=== PATIENT | female | born 1980 | race Caucasian/White ===

== ENCOUNTER 2021-12-20 23:49 | Inpatient (IN) | payer OTHER, SELFPAY ==
[2021-12-20 23:54] VITALS: BP 126/82; PULSE 69; RESP 16; TEMP 35.7; O2SAT 98
[2021-12-21] VITALS (18 sets, daily range): BP systolic 102–116; BP diastolic 51–73; PULSE 63–75; RESP 14–16; TEMP 36.4–36.7; O2SAT 91–98; BMI 35.5
--- NOTE | 2021-12-21 00:54 | CRLHL7_ITS ---
For Patients: As a result of the 21st Century Cures Act, medical imaging exams and procedure reports are released immediately into your electronic medical record. You may view this report before your referring provider. If you have questions, please contact your health care provider. INDICATION: Umbilical pain. COMPARISON: None available. TECHNIQUE: CT examination of the abdomen and pelvis was performed with the uneventful intravenous administration of 100 cc of Isovue 370 while 3 mm thick axial sections were obtained from the lung bases through the pubic symphysis. Oral contrast was not administered. Please note that all CT scans at this facility use dose modulation, iterative reconstruction, and/or weight-based dosing when appropriate to reduce radiation dose to as low as reasonably achievable. FINDINGS: There is moderate dilatation of the mid and distal small bowel extending to edematous loops in the right inferior pelvis where there is a mild amount of surrounding free fluid. A point of transition is seen in the right pelvis on axial image 124 series 2, suggesting a stricture. Findings are that of a stricture resulting in partial small bowel obstruction. The small bowel distal to the point of transition is collapsed. There is a mild amount of free fluid in the right pelvis, inferior to the liver. The free fluid in the abdomen and pelvis is probably ascites related to obstruction, with no sign of free air or extraluminal air to suggest bowel perforation. In the abdomen, the liver, spleen, pancreas, and adrenals are normal in appearance. Several small cortical cysts are seen in both kidneys. The kidneys are otherwise normal in appearance. The gallbladder is normal in appearance. The abdominal aorta is normal in caliber with no sign of dilatation. There is no sign of retroperitoneal mass or adenopathy. The stomach, loops of small bowel, and colon in the abdomen are normal in appearance. In the pelvis, the appendix is normal in appearance with no sign of inflammatory process. The loops of small bowel, colon, and rectum in the pelvis are normal in appearance. The right ovary has a cyst measuring 4.0 x 3.1 centimeters. There is a right adnexal cyst measuring 1.9 centimeters in diameter more inferiorly. The left ovary has a collapsing 1.7 centimeter cyst. The uterus is normal in appearance. The urinary bladder is normal in appearance. There is no sign of pelvic or inguinal mass or adenopathy. There is no sign of free air in the abdomen or pelvis. The lung bases are clear. The inferior portions of bilateral breast prostheses are intact with no sign of any leak. There is severe L5-S1 disc degenerative disease. IMPRESSION: Partial small bowel obstruction produced by what appears to be a stricture in the right anterior upper pelvis. Mild amount of free fluid in the abdomen and pelvis probably ascites related to struck jacobs. No sign of free air or extraluminal air to suggest perforation. CT of the abdomen shows no additional significant abnormality. CT of the pelvis shows a right larger than left ovarian cysts and a right adnexal cyst. Please note that all CT scans at this facility use dose modulation, iterative reconstruction, and/or weight-based dosing when appropriate to reduce radiation dose to as low as reasonably achievable. Dictated by Erick Peace MD @ 12/21/2021 2:13:59 AM (Electronically Signed)
[2021-12-21 01:02] LABS: Basophils Absolute Auto 0.02 K/uL (0.00-0.30); Basophils Percent Auto 0.2 % (0.0-3.0); Eosinophils Percent Auto 2.2 % (0.0-7.0); Hematocrit 41.2 % (33.0-51.0); Hemoglobin* 14.3 gm/dL (12.0-16.0); Immature Granulocytes Abs Auto 0.01 K/uL (0.00-0.30); Lymphocytes Percent Auto 15.7 % (20-44); Mean Corpuscular HGB Conc 35 gm/dL (32-36); Mean Corpuscular Hemoglobin 33 pg (26-34); Mean Corpuscular Volume 96 fL (80-100); Monocytes Percent Auto 8.1 % (0.0-11.0); Neutrophils Percent Auto 73.7 % (42.0-72.0); Platelet Count* 276 K/uL (140-440); RDW Coefficient of Variation % 11.9 % (11.5-15.5); Red Blood Count 4.31 m/uL (4.00-5.20)
[2021-12-21 01:07] LABS: Albumin* 4.7 g/dL (3.3-5.0); Chloride* 102 mmol/L (96-114); Lactate* 0.8 mmol/L (0.5-1.9); Potassium* 3.9 mmol/L (3.6-5.1); Slide Review Reflex No; Sodium* 136 mmol/L (135-149)
[2021-12-21] MEDS: ONDANSETRON 2 MG/ML inj 4 MG IVP (01:07)
[2021-12-21] MEDS: MORPHINE 4 MG/ML INJ IVP ×2 (01:08→03:28)
[2021-12-21] MEDS: 0.9 % SODIUM CHLORIDE 1000 ml 1,000 ML IV (01:08)
[2021-12-21 01:09] LABS: Creatinine* 0.8 mg/dL (0.5-1.5); Estimated Glomerular Filt Rate 94 ml/min
[2021-12-21 01:10] LABS: Alanine Aminotransferase* 30 U/L (4-35); Alkaline Phosphatase* 72 U/L (40-150); Aspartate Amino Transferase* 39 U/L (12-35); Bilirubin Direct* 0.1 mg/dL (0.0-0.5); Bilirubin Total* 0.7 mg/dL (0.1-1.5); Blood Urea Nitrogen* 14 mg/dL (5-24); Calcium* 10.2 mg/dL (8.4-10.6); Carbon Dioxide* 27 mmol/L (20-32); Glucose* 110 mg/dL (60-115); Lipase* 47 U/L (23-300); Total Protein* 7.3 g/dL (6.0-8.3)
[2021-12-21 01:15] LABS: Appearance Urine Cloudy (Clear); Bilirubin Urine Negative (Negative); Blood Urine Negative (Negative); Color Urine Yellow (Yellow); Glucose Urine Negative (Negative); Ketones Urine 1+ (Negative); Leukocyte Esterase Urine Negative (Negative); Nitrite Urine Negative (Negative); Protein Urine Negative (Negative); Specific Gravity Urine 1.015 (1.000-1.030); Urobilinogen Urine 0.2 (0.2-1.0)
[2021-12-21 01:19] LABS: Ethanol* < 0.01 % (0.01-0.03)
[2021-12-21 01:21] LABS: Amorphous Sediment Urine Many; Bacteria Urine Few; RBC Urine 0-2 (0-2); Squamous Epithelial Cell Urine Few (None-Few); Ur HCG Qualitative* Negative (Negative); WBC Urine 0-2 (0-5)
[2021-12-21 01:29] LABS: C Reactive Protein* < 0.5 mg/dL (0.5-1.0)
--- OUTSIDE RECORDS SUMMARY | 2021-12-21 01:41 | XMS_ITS | Clinical Summary ---
:1980 Author Organization [facility] [place] [address] Care Team Providers Name Role Phone Pcp, No Primary Care Provider Unavailable Allergies No known active allergies Medications Medication Sig Dispensed Refills Start Date End Date Status vitamin-folic Take 1 tablet by 0 03/12/2012 Active acid 1 mg ( mouth once daily. VITAMIN) tablet/capsule valACYclovir (VALTREX) Take 1 tablet by 60 Tab 2 03/18/2013 Active 500 mg tablet mouth 2 times daily. venlafaxine (EFFEXOR Take 75 mg by 0 08/04/2021 Active XR) 75 mg cp24 mouth once daily Extended-Release in the afternoon. capsule prazosin (MINIPRESS) 1 Take 1 mg by 0 07/13/2021 Active mg capsule mouth at bedtime. Active Problems Problem Noted Date Labor and delivery, indication for care 09/20/2012 Supervision of normal first 07/02/2012 Genital herpes, unspecified 03/12/2012 Depression with anxiety 06/14/2011 Routine health maintenance 06/14/2011 Overview: Pap smear 02/2011 Irritable bowel syndrome 06/18/2006 ALLERGIC RHINITIS D/T ANIMAL HAIR AND DANDER, cats, po llen, mold 06/18/2006 Resolved Problems Problem Noted Date Resolved Date Adjustment disorder with mixed anxiety and depressed mood 06/14/2011 Encounters Date Type Specialty Care Team Description 11/15/2021 Office Visit [facility]real [facility] (In the last 6 mo she complains o f gaining wt- with increa sed activity. Fatig ue, and hot/cold. - sta patricia that she had COVID-19 th e end of May, and noti erika the sx started after t hat. States that she just doesn't feel right ) 11/15/2021 Travel from Last 3 Months Immunizations Name Administration Dates Next Due AMB Influenza, IIV3 (Age >=3 years)(Flu 01/06/2013 Clinic Only) Influenza, IIV3 (Age >=3 years) 03/12/2012 Influenza, IIV4 01/05/2021, 11/05/2014, 01/05/2014 Td (Age >=7 Years) 11/03/2005 Tdap 08/20/2014, 07/02/2012 Family History Medical History Relation Name Comments [facility] Brother 1 Bean Good Health Brother 2 Esau Good Health Brother 3 August Hypertension Father RA Cancer Maternal Grandfather thyroid Hypertension Mother high chol Cancer Paternal Grandfather colon, Park inson's Relation Name Status Comments Brother 1 Bean Brother 2 Esau Brother 3 August Father Alive Maternal Grandfather Mother Alive Paternal Grandfather Social History Tobacco Use Types Packs/Day Years Used Date Former Smoker 1 8 Quit: 06/19/19 06 Smokeless Tobacco: Never Used Alcohol Use Standard Drinks/Week Comments Yes 3.3 (1 standard drink = 0.6 oz pure [place]co hol) occ. Sex Assigned at Date Recorded Not on file Obstetrics History Para Term AB IAB SAB Ectopic Multiple Living Live Births 1 Date Outcome GA Total Labor/2nd/3rd Weight Sex Delivery Anes PTL Lurdes A 1 A5 Name Clin Labor Last Filed Vital Signs Vital Sign Reading Time Taken Comments Blood Pressure 110/68 08/28/2016 2:04 PM CDT Pulse 79 11/15/2021 10:50 AM CDT Temperature 36 ??C (96.8 ??F) 08/28/2016 1:30 PM CDT Respiratory Rate 18 08/28/2016 2:04 PM CDT Oxygen Saturation 100% 08/28/2016 2:04 PM CDT Inhaled Oxygen Concentration - - Weight 109.8 kg (242 lb) 11/15/2021 10:50 AM CDT Height 174 cm (5' 8.5) 11/15/2021 10:50 AM CDT Body Mass Index 36.26 11/15/2021 10:50 AM CDT Plan of Treatment Health Maintenance Due Date Last Done Comments Hepatitis C screening for age 0406/24/1997 18-79 COVID-19 vaccine series (4 - 03/02/2021 01/05/2021, 021, Booster for Pfizer series) 06/03/2020 Influenza for age 9-49 11/03/2021 01/05/2021, 11/05/2014, 01/05/2014, Additional history exists Pap test for age 21-65 01/29/2022 01/29/2019, 01/29/2019, 02/24/2011, Additional history exists BMI (ht and wt on same day) for 11/15/2022 11/15/2021, 08/04, age 18+ 01/18/2016 Depression screening for age 12+ 11/15/2022 11/15/2021 Tetanus booster 08/20/2024 08/20/2014, 07/02/2012, 11/03/2005 Tdap Completed 08/20/2014, 07/02/2012 Procedures Procedure Name Priority Date/Time Associated Diagnosis Comme nts VITAMIN D 25 Routine 11/15/2021 11:39 Fatigue, unspecified Res ults for this (DEFICIENCY) AM CDT type procedure are i n the results section. LIPID PANEL W REFLEX Routine 11/15/2021 11:39 Fatigue, unspeci fied Results for this MEASURED LDL AM CDT type procedure are i n the results section. COMP METABOLIC PANEL Routine 11/15/2021 11:39 Fatigue, unspeci fied Results for this AM CDT type procedure are i n the results section. HEMOGLOBIN A1C Routine 11/15/2021 11:39 Fatigue, unspecified R esults for this SCREENING AM CDT type procedure are i n the results section. CBC W PLT NO DIFF Routine 11/15/2021 11:39 Fatigue, unspecifie d Results for this AM CDT type procedure are i n the results section. TSH WITH REFLEX Routine 11/15/2021 11:39 Fatigue, unspecified Results for this AM CDT type procedure are i n the results section. from Last 3 Months Results HEMOGLOBIN A1C SCREENING (11/15/2021 11:39 AM CDT) P athologist Signature HEMOGLOBIN A1C 5.2 <=6.4 % 11/16/2021 [facility] SCREENING 11:31 AM CDT LABORATORY-[facility] LABORATORY Specimen Anatomical Collection Method / Collection Time Recei mirna Time (Source) Location / Volume Laterality Blood BLOOD SPECIMEN / Venipuncture / 11/15/2021 11:39 11/15 Unknown Unknown AM CDT 11:39 AM CDT Narrative [facility] 11/16/2021 11:31 AM CDT ? (<5.7%) ?Normal ? (5.7% to 6.4%) ? Indicates pr ediabetes ? (>=6.5%) ? Confirms diabetes Falsely low levels may be seen with: Recent Transfusion, Recent Significant B lood Loss, Hemolytic Diseases, or Falsely elevated levels may be seen with : Untreated Anemias, Splenectomy Isreal Ibarra MD CHEMISTRY Performing Organization Address City/[facility] Phon e Number [phone] [place] [address] LABORATORY-CENTRAL 2000 LABORATORY TSH WITH REFLEX (11/15/2021 11:39 AM CDT) P athologist Signature TSH 1.01 0.35 - 4.94 11/16/2021 [facility] uIU/mL 8:15 AM CDT LABORATORY-CENTR AL LABORATORY Specimen Anatomical Collection Method / Collection Time Recei mirna Time (Source) Location / Volume Laterality Blood BLOOD SPECIMEN / Venipuncture / 11/15/2021 11:39 11/15 Unknown Unknown AM CDT 11:39 AM CDT Narrative [facility] 11/16/2021 8:15 AM CDT In Adults, TSH values between 5.00 and 10.00 uIU/ml do not necessarily indicate the presence of Hyp othyroidism. Correlation with clinical findings such as presence of goiter and/or Thyroperoxidase (TPO) Antibody ma y be helpful. For more information please refer to [facility] 20 ; 291: [phone]. Isreal Ibarra MD CHEMISTRY Performing Organization Address City/[facility] Phon e Number [phone] [place] [address] LABORATORY-CENTRAL 2000 LABORATORY (ABNORMAL) LIPID PANEL W REFLEX MEASURED LDL (11/15/2021 11:39 AM CDT) [facility] gist Method Time Signature CHOLESTEROL,TOTAL 266 (H) 100 - 199 11/16/2021 [facility] mg/dL 7:56 AM CDT LABORATORY-[facility] TRAL LABORATORY TRIGLYCERIDES 65 <150 11/16/2021 [facility] mg/dL 7:56 AM CDT LABORAT[facility] LABORATORY HDL CHOLESTEROL 83 >40 mg/dL 11/16/2021 [facility] 7:56 AM CDT [facility] LAB[facility]ORY NON-HDL 183 (H) <145 11/16/2021 [facility] CHOLESTEROL mg/dl 7:56 AM CDT LABORAT[facility] TR[facility] LABORATORY CHOL/HDL RATIO 3.20 <4.50 11/16/2021 [facility] [employer] 7:56 AM CDT LABORATORY-[facility] TRAL LABORATORY LDL CHOLESTEROL 170 (H) <=130 11/16/2021 [facility] mg/dL 7:56 AM CDT LABORATORY-[facility] TR[facility] LABORATORY VLDL CHOLESTEROL 13 <=30 11/[facility]20[facility] mg/[facility] 7:56 AM CDT LABORAT[facility] TRAL LABORATORY PROVIDER ORDERED RANDOM 11/16/2021 [facility] STATUS 7:56 AM CDT LABORATORY-[facility] TRAL LABORATORY Specimen Anatomical Collection Method / Collection Time Recei mirna Time (Source) Location / Volume Laterality Blood BLOOD SPECIMEN / Venipuncture / 11/15/2021 11:39 11/15 Unknown Unknown AM CDT 11:39 AM CDT Isreal Ibarra MD CHEMISTRY Performing Organization Address City/State/ZIP Code Phon e Number [facility] [address] [place] [address] LABORATORY-CENTRAL 2000 LABORATORY VITAMIN D 25 (DEFICIENCY) (11/15/2021 11:39 AM CDT) athologist Signature VITAMIN D 50.6 30.0 - 11/16/2021 [facility] [employer] TOTAL 80.0 ng/mL 6:44 AM CDT LABORATORY-CENT RAL LABORATORY Specimen Anatomical Collection Method / Collection Time Recei mirna Time (Source) Location / Volume Laterality Blood BLOOD SPECIMEN / Venipuncture / 11/15/2021 11:39 11/15 Unknown Unknown AM CDT 11:39 AM CDT [facility] LABORATORY-CENTRAL LABORAT ORY - 11/16/2021 6:44 AM CDT Deficiency: ? <20 ng/mL Insufficiency: ?20-29 ng/mL Sufficiency: ?30-80 ng/mL Possible Toxicity: ??>80 ng/mL Based on [place] [facility] recommend ations Isreal Ibarra MD SEND OUTS Performing Organization Address City/State/ZIP Code Phon e Number [facility] [address] [place] [address] LABORATORY-CENTRAL 1999 LABORATORY (ABNORMAL) CBC W PLT NO DIFF (11/15/2021 11:39 AM CDT) Analysis Performed At Patho logist Time Signature WHITE BLOOD 5.1 4.5 - 11.0 11/15/2021 [facility] COUNT thou/cu mm 11:42 AM T [facility] RED BLOOD COUNT 3.94 (L) 4.00 - 11/15/2021 [facility] 5.20 11:42 AM T [place] mil/cu mm CLINIC HEMOGLOBIN 13.0 12.0 - 11/15/2021 [facility] 16.0 g/dL 11:42 AM [facility] HEMATOCRIT 38.7 33.0 - 11/15/2021 [facility] 51.0 % 11:42 AM [facility] MCV 98 80 - 100 11/15/2021 [facility] fL 11:42 AM T [facility] MCH 33.0 26.0 - 11/15/2021 [facility] 34.0 pg 11:42 AM [facility] MCHC 33.6 32.0 - 11/15/2021 [facility] 36.0 g/dL 11:42 AM T [facility] RDW 12.1 11.5 - 11/15/2021 [facility] 15.5 % 11:42 AM T [facility] PLATELET COUNT 245 140 - 440 11/15/2021 [facility] thou/cu mm 11:42 AM T [facility] MPV 9.2 6.5 - 11.0 11/15/2021 [facility] 11:42 AM CDT [facility] Specimen Anatomical Collection Method / Collection Time Recei mirna Time (Source) Location / Volume Laterality Blood BLOOD SPECIMEN / Venipuncture / 11/15/2021 11:39 11/15 Unknown Unknown AM CDT 11:39 AM CDT Isreal Ibarra MD HEMATOLOGY Performing Organization Address City/State/ZIP Code Phon e Number [facility] [id number] [place], [place] [address] [facility] [address] [place] [address] COMP METABOLIC PANEL (11/15/2021 11:39 AM CDT) P athologist Signature SODIUM 141 135 - 145 11/16/2021 [facility] mmol/L 7:56 AM CDT LABORATORY-[facility] TR[facility] LABORATORY POTASSIUM 4.4 3.5 - 5.0 11/16/2021 [facility] mmol/L 7:56 AM CDT LABORATORY-[facility] TRAL LABORATORY CHLORIDE 106 98 - 110 11/16/2021 [facility] mmol/L 7:56 AM CDT LABORAT[facility] TR[facility] LABORAT[facility] CO2,TOTAL 26 21 - 31 11/16/2021 [facility] mmol/L 7:56 AM CDT LAB[facility]AT[facility] ANION GAP 9 5 - 18 11/16/2021 [facility] 7:56 AM CDT LAB[facility]AT[facility] GLUCOSE 92 65 - 100 11/16/2021 [facility] mg/dL 7:56 AM CDT LAB[facility]AT[facility] CALCIUM 8.9 8.5 - 10.5 11/16/2021 [facility] mg/dL 7:56 AM CDT [facility] BUN 10 8 - 25 11/16/2021 [facility] mg/dL 7:56 AM CDT [facility] CREATININE 0.82 0.57 - 11/16/2021 [facility] 1.11 mg/dL 7:56 AM CDT [facility] BUN/CREAT RATIO 12 10 - 20 11/16/2021 [facility] 7:56 AM CDT [facility] ALBUMIN 4.3 3.5 - 5.2 11/16/2021 [facility] g/dL 7:56 AM CDT [facility] PROTEIN,TOTAL 6.6 6.0 - 8.0 11/16/2021 [facility] g/dL 7:56 AM CDT [facility] GLOBULIN 2.3 2.0 - 3.7 11/16/2021 [facility] g/dL 7:56 AM CDT [facility] A/G RATIO 1.9 1.0 - 2.0 11/16/2021 [facility] 7:56 AM CDT [facility]AT[facility] BILIRUBIN,TOTAL 0.5 0.2 - 1.2 11/16/2021 [facility] mg/dL 7:56 AM CDT LAB[facility]AT[facility] LAB[facility] ALK PHOSPHATASE 66 50 - 136 11/16/2021 [facility] IU/L 7:56 AM CDT [facility] ALT (SGPT) 42 8 - 45 11/16/2021 [facility] IU/L 7:56 AM CDT [facility] AST (SGOT) 38 2 - 40 11/16/2021 [facility] IU/L 7:56 AM CDT LAB[facility]AT[facility] eGFR >90 >90 11/16/2021 [facility] mL/min/1.7 7:56 AM CDT LABORATORY-[facility] 3m2 TRAL LABORATORY Comment: As of 2021, eGFR is calcu lated by the CKD-EPI creatinine equation without race adjustment. eGFR can be inf luenced by muscle mass, exercise, and diet. The reported eGFR is an estimation only and is only applicable if the renal function is stable. Specimen Anatomical Collection Method / Collection Time Recei mirna Time (Source) Location / Volume Laterality Blood BLOOD SPECIMEN / Venipuncture / 11/15/2021 11:39 11/15 Unknown Unknown AM CDT 11:39 AM CDT Isreal Ibarra MD CHEMISTRY Performing Organization Address City/State/ZIP Code Phon e Number [facility] [address] [place] [address] LABORATORY-CENTRAL 2000 LABORATORY from Last 3 Months Insurance Payer Benefit Plan / Subscriber ID Effective Dates Phone Addre ss Type Group [employer] [id number] 2021-Present [address] [place] [address] Advance Directives Latest Code Status on File Code Status Date Activated Date Inactivated Comments Full Code 08/28/2016 9:51 AM 08/28/2016 4:47 PM Full Code 09/20/2012 8:56 PM 09/22/2012 2:19 PM Full Code 09/20/2012 7:09 AM 09/20/2012 8:56 PM Full Code 09/20/2012 3:21 AM 09/20/2012 7:09 AM Care Teams Supervisor Mill Relationship Specialty Start Date End Date Pcp, No PCP - General 11/15/21 .
--- OUTSIDE RECORDS SUMMARY | 2021-12-21 01:42 | XMS_ITS | Encounter Summary ---
:1980 Author Organization [facility] Address [address] [place] [address] Care Team Providers Name Role Phone Oliva Young P.A.-C. Primary Care Provider Encounter Details Date Type Department Care Team Description 11/23/2020 Admin Visit Department of Family Medicine, [address] [address] [facility] [phone] Social History Tobacco Use Types Packs/Day Years Used Date Smoking Tobacco: Former Cigarettes Smokeless Tobacco: Never Comments: Quit 2005 Alcohol Use Standard Drinks/Week Comments Yes 0 (1 standard drink = 0.6 oz pure alcoho l) Alcohol Habits Answer Date Recorded How often do you have a drink containing 4 or more times a w [place] 02/04/2020 alcohol? How many drinks containing alcohol do you have 1 or 2 02/04/2020 on a typical day when you are drinking? How often do you have six or more drinks on one Never 02/04/2020 occasion? Social Isolation Answer Date Recorded In a typical week, how many times do you Twice a week 02/02/2020 talk on the phone with family, friends, or neighbors? How often do you get together with friends Once a week 02/02/2020 or relatives? How often do you attend denominational or uatsdin More than 4 time s per year 02/02/2020 services? Do you belong to any clubs or organizations Yes 02/02/2020 such as denominational groups, unions, fraternal or athletic groups, or school groups? How often do you attend meetings of the Patient refused 02/02/2020 clubs or organizations you belong to? Are you now , , , 02/02/2020 , never or living with a partner? Physical Activity Answer Date Recorded On average, how many days per week do you engage in moderate to 3 days 02/02/2020 strenuous exercise (like walking fast, running, jogging, dancing, swimming, biking, or other activities that cause a light or heavy sweat)? On average, how many minutes do you engage in exercise at th is 40 min 02/02/2020 level? Stress Answer Date Recorded Do you feel stress - tense, restless, nervous, or To some ex tent 02/02/2020 anxious, or unable to sleep at night because your mind is troubled all the time - these days? Financial Resource Strain Answer Date Recorded How hard is it for you to pay for the very basics like Not h waqar at all 02/02/2020 food, housing, medical care, and heating? Intimate Partner Violence Answer Date Recorded Within the last year, have you been afraid of your partner o r No 02/02/2020 ex-partner? Within the last year, have you been humiliated or emotionall y No 02/02/2020 abused in other ways by your partner or ex-partner? Within the last year, have you been kicked, hit, slapped, or No 02/02/2020 otherwise physically hurt by your partner or ex-partner? Within the last year, have you been raped or forced to have any No 02/02/2020 kind of sexual activity by your partner or ex-partner? Food Insecurity Answer Date Recorded Within the past 12 months, you worried that your food would Never true 02/02/2020 run out before you got money to buy more. Within the past 12 months, the food you bought just didn't N ever true 02/02/2020 last and you didn't have money to get more. Transportation Needs Answer Date Recorded In the past 12 months, has lack of transportation kept you f rom No 02/02/2020 medical appointments or from getting medications? In the past 12 months, has lack of transportation kept you f rom No 02/02/2020 meetings, work, or getting things needed for daily living? Education Answer Date Recorded What is the highest level of school Bachelor's degree (e.g., BA, AB, 02/02/2020 you have completed or the highest BS) degree you have received? Sex Assigned at Date Recorded Not on file documented as of this encounter Plan of Treatment Not on filedocumented as of this encounter Visit Diagnoses Not on filedocumented in this encounter Additional Health Concerns Infection Onset Date Last Indicated Resolved Time COVID19 Pending 11/23/2020 11/23/2020 11/24/2020 3:14 AM CDT documented as of this encounter Care Teams Salt Washer Relationship Specialty Start Date End Date Oliva Young P.A.-C. PCP - General Family Medicine 02/04/[address] [address] documented as of this encounter
--- OUTSIDE RECORDS SUMMARY | 2021-12-21 01:42 | XMS_ITS | Encounter Summary ---
:1980 Author Organization [facility] Address [address] [place] [address] Care Team Providers Name Role Phone Oliva Young P.A.-C. Primary Care Provider Reason for Referral Specialty Diagnoses / Procedures Referred By Contact Refer red To Contact [facility] Professional [address] [phone] Referral ID Status Reason Start Date Expiration Date Visits Requ ested Visits Authorized Encounter Details Date Type Department Care Team Description 06/03/2020 Immunization Department of [facility] For COVID-19 Medicine, [place] Mot[place]ed Fischer M.D. Vaccine Immunization Professional [facility], [address] Dx[place] [address] [place] [address] Social History Tobacco Use Types Packs/Day Years Used Date Smoking Tobacco: Former Cigarettes Smokeless Tobacco: Never Comments: Quit 2005 Alcohol Use Standard Drinks/Week Comments Yes 0 (1 standard drink = 0.6 oz pure alcoho l) Alcohol Habits Answer Date Recorded How often do you have a drink containing 4 or more times a w lummi 02/04/2020 alcohol? How many drinks containing alcohol [...] or relatives? How often do you attend methodist or holiness More than 4 time s per year 02/02/2020 services? Do you belong to any clubs or organizations Yes 02/02/2020 such as methodist groups, unions, fraSanera or athletic groups, or school groups? How [...] as of this encounter Plan of Treatment Scheduled Referrals Name Type Priority Associated Diagnoses Order S chedule Covid immunization Outpatient Referral Routine Encounter For E xpected: office visit COVID-19 Vaccine 06/24/2020, Subsequent; 21 days Immunization Expires: 06/04/2023 documented as of this encounter Visit Diagnoses Diagnosis Encounter For COVID-19 Vaccine Immunizat ion - Primary documented in this encounter Care Teams Consumer Insight Analyst Relationship Specialty Start Date End Date Oliva Young P.A.-C. PCP - General Family Medicine 02/04/202199 [address] [address] documented as of this encounter
--- OUTSIDE RECORDS SUMMARY | 2021-12-21 01:42 | XMS_ITS | Encounter Summary ---
:1980 Author Organization [facility] Address [address] [place] [address] Care Team Providers Name Role Phone Oliva Young P.A.-C. Primary Care Provider Encounter Details Date Type Department Care Team Description 08/30/2020 Clinical Communication Department of [facility] Cathie Young, Medicine, Isabella Ingrid [facility], [place] [address] [place], [place] [address] [address] [place], [place] [phone] [address] (Work) [phone] Social History Tobacco Use Types Packs/Day Years Used Date Smoking Tobacco: Former Cigarettes Smokeless Tobacco: Never Comments: Quit 2006 Alcohol Use Standard Drinks/Week Comments Yes 0 (1 standard drink = 0.6 oz pure alcoho l) Alcohol Habits Answer Date Recorded How often do you have a drink containing 4 or more times a w [place] 02/04/2020 alcohol? How many drinks containing alcohol [...] or relatives? How often do you attend latter day or scientology More than 4 time s per year 02/02/2020 services? Do you belong to any clubs or organizations Yes 02/02/2020 such as latter day groups, unions, fraternal or athletic groups, or [...] on file documented as of this encounter Miscellaneous Notes Telephone Encounter - Trudy Campbell, L.P.N. - 08/30/2020 2:51 PM CDT New portal message sent. documented in this encounter Plan of Treatment Not on filedocumented as of this encounter Visit Diagnoses Not on filedocumented in this encounter Care Teams Ballistic Technician Relationship Specialty Start Date End Date Oliva Young P.A.-C. PCP - General Family Medicine 02/04/[address] [address] documented as of this encounter
--- OUTSIDE RECORDS SUMMARY | 2021-12-21 01:42 | XMS_ITS | Encounter Summary ---
:1980 Author Organization [facility] Address [address] [place] [address] Care Team Providers Name Role Phone Oliva Young P.A.-CAma Primary Care Provider Reason for Visit Reason Comments Med Refill Encounter Details Date Type Department Care Team Description 05/02/2020 Refill Department of Family Medicine, Oliva Leiva, P.A.-CAma Med Refill [facility], in [place], [address] [place] [address] [address] [place] [address] [facility] [phone] Social History Tobacco Use Types Packs/Day Years Used Date Smoking Tobacco: Former Cigarettes Smokeless Tobacco: Never Comments: Quit 2005 Alcohol Use Standard Drinks/Week Comments Yes 0 (1 standard drink = 0.6 oz pure alcoho l) Alcohol Habits Answer Date Recorded How often do you have a drink containing 4 or more times a w [place] 02/04/2020 alcohol? How many drinks containing alcohol [...] or relatives? How often do you attend orthodox or rastafarian More than 4 time s per year 02/02/2020 services? Do you belong to any clubs or organizations Yes 02/02/2020 such as orthodox groups, unions, fraternal or athletic groups, or [...] filedocumented as of this encounter Visit Diagnoses Diagnosis Other Specified Anxiety Disorders documented in this encounter Care Teams [place] Bacon Tier Relationship Specialty Start Date End Date Oliva Young P.A.-C. PCP - General Family Medicine 02/04/[address] [address] documented as of this encounter
--- OUTSIDE RECORDS SUMMARY | 2021-12-21 01:42 | XMS_ITS | Encounter Summary ---
:1980 Author Organization [facility] Address [address] [place] [address] Care Team Providers Name Role Phone Unavailable Primary Care Provider Unavailable Reason for Visit Reason Comments Med Refill Encounter Details Date Type Department Care Team Description 11/19/2019 Refill Department of Internal Juan Cat D.O. Med Refill Medicine in [facility] [address] [place] [address] [address] [place] [address] [facility] [phone] Social History Tobacco Use Types Packs/Day Years Used Date Smoking Tobacco: Never Alcohol Habits Answer Date Recorded How often do you have a drink containing 4 or more times a w [place] 02/04/2020 alcohol? How many drinks containing alcohol [...] or relatives? How often do you attend tenriism or yarsanism More than 4 time s per year 02/02/2020 services? Do you belong to any clubs or organizations Yes 02/02/2020 such as tenriism groups, unions, fraternal or athletic groups, or [...] or getting things needed for daily living? Sex Assigned at Date Recorded Not on file documented as of this encounter Miscellaneous Notes Telephone Encounter - Garrison Oconnell - 11/21/2019 9:15 AM CDT No PCP documented in this encounter Plan of Treatment Not on filedocumented as of this encounter Visit Diagnoses Not on filedocumented in this encounter
--- OUTSIDE RECORDS SUMMARY | 2021-12-21 01:42 | XMS_ITS | Encounter Summary ---
:1980 Author Organization [facility] Address [address] [place] [address] Care Team Providers Name Role Phone Oliva Young P.A.-C. Primary Care Provider Encounter Details Date Type Department Care Team Description 02/25/2020 Hospital Encounter Department of Oliva Young For Screening For Cardiovascular Disorders; Laboratory Medicine Ingrid Grant Preoperative Exam in [place] [id number] [place] [phone] Social History Tobacco Use Types Packs/Day Years Used Date Smoking Tobacco: Former Cigarettes Smokeless Tobacco: Never Comments: Quit 2005 Alcohol Use Standard Drinks/Week Comments Yes 0 (1 standard drink = 0.6 oz pure alcoho l) Alcohol Habits Answer Date Recorded How often do you have a drink containing 4 or more times a w [place] 02/04/2020 alcohol? How many drinks containing alcohol [...] or relatives? How often do you attend sikh or mandaeism More than 4 time s per year 02/02/2020 services? Do you belong to any clubs or organizations Yes 02/02/2020 such as sikh groups, unions, fraternal or athletic groups, or [...] on file documented as of this encounter Medications at Time of Discharge Medication Sig Dispensed Refills Start Date End Date prenat.vits,juan,min-iron Take 1 tablet by 0 03/12 -folic tablet mouth. venlafaxine XR Take 1 capsule (75 90 capsule 3 02/04/2020 (EFFEXOR-XR) 75 mg 24 hr mg total) by mouth capsuleIndications: daily. Other Specified Anxiety Disorders LORazepam (ATIVAN) 0.5 Take 1 tablet (0.5 5 tablet 0 02/0303/22/2020 mg tabletIndications: mg total) by mouth 3 Other Specified Anxiety (three) times a day Disorders as needed for anxiety (panic attacks). documented as of this encounter Plan of Treatment Not on filedocumented as of this encounter Procedures Procedure Name Priority Date/Time Associated Diagnosis Comme nts LIPID PANEL, S Routine 02/25/2020 10:53 Encounter For Screenin g Results for this AM SAW OFFBEARER For Cardiovascular procedure are in Disorders the results section. CBC WITH Routine 02/25/2020 10:53 Preoperative Exam Result s for this DIFFERENTIAL, B AM SAW OFFBEARER procedure ar e in the results section. documented in this encounter Results CBC with Differential, Blood (02/25/2020 10:53 AM SAW OFFBEARER) P athologist Signature Hemoglobin 12.5 11.6 - 02/25/2020 OWAT 15.0 g/dL 11:03 AM SAW OFFBEARER Hematocrit 38.6 35.5 - 02/25/2020 OWAT 44.9 % 11:03 AM SAW OFFBEARER Erythrocytes 3.99 3.92 - 02/25/2020 OW[place] 5.13 11:03 AM SAW OFFBEARER x10(12)/L MCV 96.7 78.2 - 02/25/2020 OW[place] 97.9 fL 11:03 AM SAW OFFBEARER RBC Distrib Width 12.2 12.2 - 02/25/2020 OWAT 16.1 % 11:03 AM SAW OFFBEARER Platelet Count 251 157 - 371 02/25/2020 OWAT x10(9)/L 11:03 AM SAW OFFBEARER Leukocytes 5.2 3.4 - 9.6 02/25/2020 OWAT x10(9)/L 11:03 AM SAW OFFBEARER Neutrophils 2.62 1.56 - 02/25/2020 OWAT 6.45 11:03 AM SAW OFFBEARER x10(9)/L Lymphocytes 1.74 0.95 - 02/25/2020 OWAT 3.07 11:03 AM SAW OFFBEARER x10(9)/L Monocytes 0.54 0.26 - 02/25/2020 OWAT 0.81 11:03 AM SAW OFFBEARER x10(9)/L Eosinophils 0.21 0.03 - 02/25/2020 OWAT 0.48 11:03 AM SAW OFFBEARER x10(9)/L Basophils 0.04 0.01 - 02/25/2020 OWAT 0.08 11:03 AM SAW OFFBEARER x10(9)/L Specimen Anatomical Collection Method Collection Time Receive d Time (Source) Location / / Volume Laterality Blood (Blood, 02/25/2020 10:53 02/25/2020 Venous) AM SAW OFFBEARER 10:54 AM SAW OFFBEARER Oliva Young P.A.-C. LAB BLOOD ADD-ON Performing Organization Address City/State/ZIP Code Phon e Number [facility]- [address] [place] [address] [facility] [place] [address] System in [place] [address] (ABNORMAL) Lipid Panel (02/25/2020 10:53 AM SAW OFFBEARER) P athologist Signature Cholesterol, 208 (H) mg/dL 02/25/2020 OW[place] Total 12:15 PM SAW OFFBEARER Comment: ----REFERENCE VALUE---- Desirable: < 200 Borderline high: 200 - 239 High: > or = 240 Triglycerides 44 mg/dL 02/25/2020 12:15 PM SAW OFFBEARER OW AT Comment: ----REFERENCE VALUE---- Normal: <150 Borderline high: 150-199 High: 200-499 Very high: > or =500 Cholesterol, HDL 96 >=50 mg/dL 02/25/2020 12:15 PM CS T OWAT Calculated LDL 103 mg/dL 02/25/2020 12:15 PM SAW OFFBEARER O [place]ON Comment: ----REFERENCE VALUE---- Desirable: <100 Above Desirable: 100-129 Borderline high: 130-159 High: 160-189 Very high: > or =190 Cholesterol, Non-HDL, Calculated 112 mg/dL 020 12:15 PM SAW OFFBEARER OWAT Comment: ----REFERENCE VALUE---- Desirable: <130 Above Desirable: 130-159 Borderline high: 160-189 High: 190-219 Very high: > or =220 Specimen Anatomical Collection Method Collection Time Receive d Time (Source) Location / / Volume Laterality Blood (Blood, 02/25/2020 10:53 02/25/2020 Venous) AM SAW OFFBEARER 10:54 AM SAW OFFBEARER Oliva Young P.A.-C. LAB BLOOD ADD-ON Performing Organization Address City/State/ZIP Code Phon e Number [facility]- [address] [place] [address] [place] [address] System in [place] [address] [facility] documented in this encounter Visit Diagnoses Diagnosis Encounter For Screening For Cardiovascul ar Disorders Preoperative Exam documented in this encounter Care Teams Glycerin Operator Relationship Specialty Start Date End Date Oliva Young P.A.-C. PCP - General Family Medicine 02/04/202199 [place] [address] documented as of this encounter
--- OUTSIDE RECORDS SUMMARY | 2021-12-21 01:42 | XMS_ITS | Encounter Summary ---
:1980 Author Organization [facility] Address [address] [place] [address] Care Team Providers Name Role Phone Unavailable Primary Care Provider Unavailable Reason for Visit Reason Onset Date Comments Outpatient COVID-19 Testing 06/24/2019 Encounter Details Date Type Department Care Team Description 06/24/2019 External Outreach Department of Florin Kent Infectio n [facility] Medicine, D.OAma Respiratory ([place] [address] [address]) [place], [place] [address] [address] [place], [place] [phone] [address] (Work) [phone] Social History Tobacco Use Types Packs/Day Years Used Date Smoking Tobacco: Never Alcohol Habits Answer Date Recorded How often do you have a drink containing 4 or more times a w [place] 02/04/2020 alcohol? How many drinks containing alcohol [...] or relatives? How often do you attend worship or hoahaoism More than 4 time s per year 02/02/2020 services? Do you belong to any clubs or organizations Yes 02/02/2020 such as worship groups, unions, fraternal or athletic groups, or [...] on file documented as of this encounter Progress Notes Florin Kent D.O. - 06/24/2019 4:01 PM CDT Encounter created for the drive-through COVID-19 testing. documented in this encounter Miscellaneous Notes Result Encounter Note - Jazlyn Saleh - 2019 9:32 AM CDT Result Letter sent to patient with negative COVID-19 result. documented in this encounter Plan of Treatment Not on filedocumented as of this encounter Procedures Procedure Name Priority Date/Time Associated Diagnosis Comme nts SARS CORONAVIRUS-2, Routine 06/24/2019 4:30 PM Infection Upper Results for this PCR CDT Respiratory procedure are i n the results section. documented in this encounter Results SARS Coronavirus-2, PCR (06/24/2019 4:30 PM CDT) [facility] gist Method Time Signature SARS Swab, 2019 DTL Coronavirus-2 Nasopharynx 8:50 AM CDT Source SARS Undetected Undetected 2019 DTL Coronavirus-2 8:50 AM CDT , PCR Comment: SARS-CoV-2 RNA absent. This result does not rule out COVID-19 in the patient, as the sensitivity of the test depends o n the timing of the specimen collection and quality of the specimen. Result should be correlated with patient's history and clinical presentat ion. ----ADDITIONAL INFORMATION---- This test was developed and its performa nce characteristics determined by [facility] in a manner co nsistent with CLIA requirements. Independent review by the U.S. Food and Drug Administration is pending. Visit the CDC website: https://www.cdc.gov/coronavirus/ ?? for the most recent guidelines on [place] virus testing. Fact Sheet for Healthcare Providers: (https://www.[employer].Expert/it-mmfil es/ Provider_Fact_Sheet_for_[facility]_COVI D-19.pdf) Fact Sheet for Patients: (https://www.[facility].com/it-mmfil es/ Patient_Fact_Sheet_for_COVID-19.pdf) Specimen Anatomical Collection Method Collection Time Receive d Time (Source) Location / / Volume Laterality Varies 06/24/2019 4:30 PM 0 6:14 (Nasopharynx) CDT PM CDT Florin Kent D.O. LAB MICROBIOLOGY - GENERAL O RDERABLES Performing Organization Address City/State/[facility] Code Phon e Number [facility] - [address] [place], [place] [address] [place] [address] [facility] [address] documented in this encounter Visit Diagnoses Diagnosis Infection Upper Respiratory - Primary documented in this encounter Additional Health Concerns Infection Onset Date Last Indicated Resolved Time COVID19 Pending 06/24/2019 06/24/2019 2019 8:50 AM CDT documented as of this encounter
--- OUTSIDE RECORDS SUMMARY | 2021-12-21 01:42 | XMS_ITS | Encounter Summary ---
:1980 Author Organization [facility] Address [address] [place] [address] Care Team Providers Name Role Phone Unavailable Primary Care Provider Unavailable Encounter Details Date Type Department Care Team Description 10/18/2016 Hospital Encounter [facility] OWNate Gregory M.D. [address] [place], [place] [phone] (Wo rk) Social History Tobacco Use Types Packs/Day Years Used Date Smoking Tobacco: Never Alcohol Habits Answer Date Recorded How often do you have a drink containing 4 or more times a w [place] 02/04/2020 alcohol? How many drinks containing alcohol [...] or relatives? How often do you attend sabianist or yarsani More than 4 time s per year 02/02/2020 services? Do you belong to any clubs or organizations Yes 02/02/2020 such as sabianist groups, unions, fraternal or athletic groups, or [...] on file documented as of this encounter Last Filed Vital Signs Vital Sign Reading Time Taken Comments Blood Pressure - - Pulse 62 10/18/2016 10:04 AM CDT Temperature - - Respiratory Rate 16 10/18/2016 10:04 AM CDT Oxygen Saturation - - Inhaled Oxygen Concentration - - Weight 95.3 kg (210 lb 1.6 oz) 10/18/2016 10:04 AM CDT Height - - Body Mass Index - - documented in this encounter Medications at Time of Discharge Medication Sig Dispensed Refills Start Date End Date prenat.vits,juan,min-iron-f Take 1 tablet by 0 10/2012 olic tablet mouth. valACYclovir (VALTREX) 500 Take 500 mg by 0 03/1811/19/2019 mg tablet mouth. documented as of this encounter Plan of Treatment Not on filedocumented as of this encounter Visit Diagnoses Not on filedocumented in this encounter
--- OUTSIDE RECORDS SUMMARY | 2021-12-21 01:42 | XMS_ITS | Encounter Summary ---
:1980 Author Organization [facility] Address [address] [place] [address] Care Team Providers Name Role Phone Oliva Young P.A.-C. Primary Care Provider Reason for Referral Outpatient (Routine) - Authorized Specialty Diagnoses / Procedures Referred By Contact Refer red To Contact Family Medicine Oliva Young P.A. -C. [facility] Region [address] [place] [phone] Referral ID Status Reason Start Date Expiration Date Visits V isits Requested Authorized [id number] Authorized 11/08/2021 11/07/2024 1 1 Outpatient (Routine) - Authorized Specialty Diagnoses / Procedures Referred By Contact Refer red To Contact Diagnoses Screening Mammogram Breast Cancer Oliva Young P.A.-C. [facility] Region Procedures BI Breast Screening Bilateral with Tomosynthesis [address] [place] [phone] Referral ID Status Reason Start Date Expiration Date Visits V isits Requested Authorized [id number] Authorized 11/08/2021 11/08/2022 1 1 Encounter Details Date Type Department Care Team Description 11/08/2021 Orders Only [facility] PCP HL[facility] MNT Oliva Young, Sc reening Mammogram P.A.-C. Breast Cancer [address] [facility] [place] [address] Social History Tobacco Use Types Packs/Day Years Used Date Smoking Tobacco: Former Cigarettes Smokeless Tobacco: Never Comments: Quit 2005 Alcohol Use Standard Drinks/Week Comments Yes 0 (1 standard drink = 0.6 oz pure alcoho l) Alcohol Habits Answer Date Recorded How often do you have a drink containing 4 or more times a w [place] 02/04/2020 alcohol? How many drinks containing alcohol [...] How often do you attend denominational or anabaptism More than 4 time s per year [...] of this encounter Plan of Treatment Scheduled Orders Name Type Priority Associated Order Schedule Diagnoses BI Breast Screening Imaging RAD - Routine (most Screening Mamm ogram Expected: Bilateral with inpatients and all Breast Cancer 2021, Tomosynthesis outpatients) Expires: 05/07/2022 Scheduled Referrals Name Type Priority Associated Diagnoses Order S [facility] Medicine Outpatient Referral Routine Expec juan jose: office visit 11/22/2021, (clinic) Expires: 05/07/2022 documented as of this encounter Visit Diagnoses Diagnosis Screening Mammogram Breast Cancer documented in this encounter Care Teams Manpower Development Specialist Relationship Specialty Start Date End Date Oliva Young P.A.-C. PCP - General Family Medicine 02/04/202199 [address] [place] [address] documented as of this encounter
--- OUTSIDE RECORDS SUMMARY | 2021-12-21 01:42 | XMS_ITS | Encounter Summary ---
:1980 Author Organization [facility] Address [address] [place] [address] Care Team Providers Name Role Phone Oliva Young P.A.-CAma Primary Care Provider Reason for Visit Reason Comments Med Refill Encounter Details Date Type Department Care Team Description 09/30/2020 Refill Department of Family Medicine, Oliva Leiva, P.A.-CAma Med Refill [facility], in [place], [address] [place] [address] [address] [place] [address] [facility] [phone] Social History Tobacco Use Types Packs/Day Years Used Date Smoking Tobacco: Former Cigarettes Smokeless Tobacco: Never Comments: Quit 2005 Alcohol Use Standard Drinks/Week Comments Yes 0 (1 standard drink = 0.6 oz pure alcoho l) Alcohol Habits Answer Date Recorded How often do you have a drink containing 4 or more times a w [place] 02/04/2020 alcohol? How many drinks containing alcohol [...] or relatives? How often do you attend restoration or caodaism More than 4 time s per year 02/02/2020 services? Do you belong to any clubs or organizations Yes 02/02/2020 such as restoration groups, unions, fraternal or athletic groups, or [...] this encounter Miscellaneous Notes Telephone Encounter - Jackie Mcgarry - 10/12/2020 1:19 PM CDT Called and left message for patient to call back and schedule an appt per previous message. Telephone Encounter - Oliva Young P.A.-C. - 10/08/2020 9:13 AM CDT 20 tablet refill provided. I would like to see you for a visit to discuss further treatment of anxiety as I prefer to improve control of generalized anxiety to minimize need for medications like Ativan. documented in this encounter Plan of Treatment Not on filedocumented as of this encounter Visit Diagnoses Diagnosis Other Specified Anxiety Disorders documented in this encounter Care Teams Coater Slate Relationship Specialty Start Date End Date Oliva Young P.A.-C. PCP - General Family Medicine 02/04/[address] [phone] documented as of this encounter
--- OUTSIDE RECORDS SUMMARY | 2021-12-21 01:42 | XMS_ITS | Encounter Summary ---
:1980 Author Organization [facility] Address [address] [place] [address] Care Team Providers Name Role Phone Oliva Young P.A.-C. Primary Care Provider Encounter Details Date Type Department Care Team Description 03/10/2021 Orders Only [facility] PCP HL MNT Oliva Young, Sc reening Mammogram P.A.-C. Breast Cancer [address] [place] [address] Social History Tobacco Use Types Packs/Day Years Used Date Smoking Tobacco: Former Cigarettes Smokeless Tobacco: Never Comments: Quit 2005 Alcohol Use Standard Drinks/Week Comments Yes 0 (1 standard drink = 0.6 oz pure alcoho l) Alcohol Habits Answer Date Recorded How often do you have a drink containing 4 or more times a w [place] 02/04/2020 alcohol? How many drinks containing alcohol [...] How often do you attend restoration or taoism More than 4 time s per year [...] Cancer documented in this encounter Care Teams Software Technical Lead Relationship Specialty Start Date End Date Oliva Young P.A.-C. PCP - General Family Medicine 02/04/[address] [address] documented as of this encounter
--- OUTSIDE RECORDS SUMMARY | 2021-12-21 01:42 | XMS_ITS | Encounter Summary ---
:1980 Author Organization [facility] Address [address] [place] [address] Care Team Providers Name Role Phone Oliva Young P.A.-CAma Primary Care Provider Reason for Visit Reason Comments Med Refill Encounter Details Date Type Department Care Team Description 03/21/2020 Refill Department of Family Medicine, Oliva Leiva, P.A.-CAma Med Refill [facility], in [place], [address] [place] [address] [address] [place] [address] [facility] [phone] Social History Tobacco Use Types Packs/Day Years Used Date Smoking Tobacco: Former Cigarettes Smokeless Tobacco: Never Comments: Quit 2005 Alcohol Use Standard Drinks/Week Comments Yes 0 (1 standard drink = 0.6 oz pure alcoho l) Alcohol Habits Answer Date Recorded How often do you have a drink containing 4 or more times a w [place] 02/04/2020 alcohol? How many drinks containing alcohol [...] or relatives? How often do you attend jew or catholic More than 4 time s per year 02/02/2020 services? Do you belong to any clubs or organizations Yes 02/02/2020 such as jew groups, unions, fraternal or athletic groups, or [...] Disorders documented in this encounter Care Teams Search Marketing Analyst Relationship Specialty Start Date End Date Oliva Young P.A.-C. PCP - General Family Medicine 02/04/[address] [address] documented as of this encounter
--- OUTSIDE RECORDS SUMMARY | 2021-12-21 01:42 | XMS_ITS | Encounter Summary ---
:1980 Author Organization [facility] Address [address] [place] [address] Care Team Providers Name Role Phone Oliva Young P.A.-C. Primary Care Provider Reason for Referral Specialty Diagnoses / Procedures Referred By Contact Refer red To Contact Oliva Young P.A. -C. [facility] Region [address] [place] [address] Referral ID Status Reason Start Date Expiration Date Visits Requ ested Visits Authorized Encounter Details Date Type Department Care Team Description 12/08/2021 Orders Only [facility] Alisia Young P.A.-C. [address] [place], [place] [phone] (Wo rk) Social History Tobacco Use Types Packs/Day Years Used Date Smoking Tobacco: Former Cigarettes Smokeless Tobacco: Never Comments: Quit 2005 Alcohol Use Standard Drinks/Week Comments Yes 0 (1 standard drink = 0.6 oz pure alcoho l) Alcohol Habits Answer Date Recorded How often do you have a drink containing 4 or more times a w [place] 02/04/2020 alcohol? How many drinks containing alcohol [...] How often do you attend sabianist or confucianist More than 4 time s per year 02/02/2020 services? Do you belong to any clubs or organizations Yes 02/02/2020 such as sabianist groups, unions, fraCint or athletic groups, or school groups? How [...] Treatment Scheduled Referrals Name Type Priority Associated Order Schedule Diagnoses Covid immunization Outpatient Referral Routine Ex pected: office visit 12/08/2021 Immuno/Booster (Approximate) , Expires: 12/08/2022 documented as of this encounter Visit Diagnoses Not on filedocumented in this encounter Care Teams Guzzler Builder Relationship Specialty Start Date End Date Oliva Young P.A.-C. PCP - General Family Medicine 02/04/[address] [address] documented as of this encounter
--- OUTSIDE RECORDS SUMMARY | 2021-12-21 01:42 | XMS_ITS | Encounter Summary ---
:1980 Author Organization [facility] Address [address] [place] [address] Care Team Providers Name Role Phone Unavailable Primary Care Provider Unavailable Encounter Details Date Type Department Care Team Description 08/28/2016 Hospital Encounter HX NO MAPPING Balta Mason M.D. [address] [place], [place] [phone] (Wo rk) Social History Tobacco Use Types Packs/Day Years Used Date Smoking Tobacco: Never Assessed Alcohol Habits Answer Date Recorded How often do you have a drink containing 4 or more times a w [place] 02/04/2020 alcohol? How many drinks containing alcohol [...] or relatives? How often do you attend rastafari or hinduism More than 4 time s per year 02/02/2020 services? Do you belong to any clubs or organizations Yes 02/02/2020 such as rastafari groups, unions, fraternal or athletic groups, or [...]
--- OUTSIDE RECORDS SUMMARY | 2021-12-21 01:42 | XMS_ITS | Encounter Summary ---
:1980 Author Organization [facility] Address [address] [place] [address] Care Team Providers Name Role Phone Oliva Young P.A.-C. Primary Care Provider Encounter Details Date Type Department Care Team Description 01/05/2021 Immunization Department of Family Medicine, [address] [address] [facility] [phone] Social History Tobacco Use Types Packs/Day Years Used Date Smoking Tobacco: Former Cigarettes Smokeless Tobacco: Never Comments: Quit 2005 Alcohol Use Standard Drinks/Week Comments Yes 0 (1 standard drink = 0.6 oz pure alcoho l) Alcohol Habits Answer Date Recorded How often do you have a drink containing 4 or more times a w [place] 02/04/2020 alcohol? How many drinks containing alcohol [...] or relatives? How often do you attend buddhism or zoroastrian More than 4 time s per year 02/02/2020 services? Do you belong to any clubs or organizations Yes 02/02/2020 such as buddhism groups, unions, fraternal or athletic groups, or [...] on filedocumented in this encounter Care Teams Surgery Specialist Relationship Specialty Start Date End Date Oliva Young P.A.-C. PCP - General Family Medicine 02/04/[address] [address] documented as of this encounter
--- OUTSIDE RECORDS SUMMARY | 2021-12-21 01:42 | XMS_ITS | Encounter Summary ---
:1980 Author Organization [facility] Address [address] [place] [address] Care Team Providers Name Role Phone Oliva Young P.A.-C. Primary Care Provider Reason for Referral Outpatient (Routine) - Closed Specialty Diagnoses / Procedures Referred By Contact Refer red To Contact Diagnoses Screening Mammogram Breast Cancer Oliva Young P.A.-C. [facility] Procedures BI Breast Screening Bilateral with Tomosynthesis [address] [place] [address] Referral ID Status Reason Start Date Expiration Date Visits Requ ested Visits Authorized [id number] Closed 02/04/2020 02/03/2021 1 1 OR MAP Reason for Visit Reason Comments Other Establish care and medicatio n check Appointment Request (Routine) - Closed Specialty Diagnoses / Procedures Referred By Contact Refer red To Contact Family Medicine Referral ID Status Reason Start Date Expiration Date Visits Requ ested Visits Authorized [id number] Closed 01/20/2020 01/19/2021 1 1 Encounter Details Date Type Department Care Team Description 02/04/2020 Telemedicine Department of [facility] Oliva Young Scre ening Mammogram Breast Cancer (Primary Dx[facility] Encounter For Screening For Cardiovascul ar Disorders; [facility], [address] Herpes Genitalis; [place], [place] Other Specified Anxiety Diso rders [address] [address] [place] [phone] [address] (Work) [phone] Social History Tobacco Use Types Packs/Day Years [...] or relatives? How often do you attend scientologist or hinduism More than 4 time s per year 02/02/2020 services? Do you belong to any clubs or organizations Yes 02/02/2020 such as scientologist groups, unions, fraternal or athletic groups, or [...] documented as of this encounter Progress Notes Oliva Young P.A.-C. - 02/04/2020 11:00 AM CST SUBJECTIVE VIDEO VISIT DATE OF ENCOUNTER: 02/04/20 CHIEF COMPLAINT / REASON FOR VIDEO VISIT Other (Establish care and medication check) HISTORY OF PRESENT ILLNESS Solange Cat is a 39 y.o. female who was contacted today via video to establish care. Patient identity was verified by myself. Patient is to Dr. Cat and is a mother of two boys ages 5 and 7. She primarily stays homewith her boys. Patient is needing refills of medications today. She feels her anxiety is well controlled with Effexor ER. Patient occasionally uses Ativan for panic attacks, her most recent panic attack was at [place]. Patient also reports using Valtrex for episodic treatment of genital herpes. She reports about one flare every 6 months. Patient plans to have ???trell make over in March and will follow-up with me for preoperative exam in February. The following portions of the patient's history were reviewed and updated as appropriate: allergies,current medications, family history, medical history, social history, surgical history and problem list. MEDICATIONS Reviewed and updated. Outpatient Medications Prior to Visit Medication Sig Dispense Refill ??? prenat.vits,juan,jrx-nkdu-hxjam tablet Take 1 tablet by mouth. ??? LORazepam (ATIVAN) 0.5 mg tablet Take 0.5 mg by mouth 3 (three) times a day as needed for anxiety. ??? valACYclovir (VALTREX) 500 mg tablet Take by mouth. Patient stated she uses as needed ??? venlafaxine XR (EFFEXOR-XR) 75 mg 24 hr capsule Take 75 mg by mouth daily. No facility-administered medications prior to visit. OBJECTIVE VITAL SIGNS There were no vitals taken for this visit. PHYSICAL EXAMINATION LIMITED GIVEN THAT THIS IS A TELEPHONE ENCOUNTER Pertinent findings able to be determined with the technological tools available are listed below: Constitutional Appearance: Normal appearance. She is normal weight. Pulmonary Effort: Pulmonary effort is normal. No respiratory distress. Neurological General: No focal deficit present. Mental Status: She is alert and oriented to person, place, and time. Psychiatric Mood and Affect: Mood normal. Behavior: Behavior normal. Thought Content: Thought content normal. Judgment: Judgment normal. DIAGNOSTICS Reviewed in the EHR. ASSESSMENT/PLAN #1 Screening Mammogram Breast Cancer -Mammogram ordered. #2 Encounter For Screening For Cardiovascular Disorders -Lipid Panel ordered. #3 Herpes Genitalis -With 2 flares a year, episodic therapy is still most appropriate. Patient will let me know if frequency of flares increases. -Refilled valACYclovir (VALTREX) 500 mg tablet; Take 1 tablet (500 mg total) by mouth 2 (two) times a day for 3 days. Begin at first sign of prodromal symptoms or onset of lesion. #4 Anxiety -Stable. -Refilled venlafaxine XR (EFFEXOR-XR) 75 mg 24 hr capsule -Refilled LORazepam (ATIVAN) 0.5 mg tablet I personally spent a total of 15 minutes in nla-irct-mb-face time performing a review of the record and/or discussion with the patient/caregiver as described above. Consult conducted via real-time audio/video technology by Oliva Young PA-C in [facility] to the patient in home. OR MAP documented in this encounter Plan of Treatment Not on filedocumented as of this encounter Results BI Breast Screening Bilateral with Tomosynthesis (02/25/2020 11:14 AM EDITOR MAP) Anatomical Region Laterality Modality Breast, Breast Imaging RST LOS, Breast Imaging ARZ LOS, Angely st Bilateral Mammography Imaging FLA LOS Specimen (Source) Anatomical Collection Method Collection Time Re ceived Time Location / / Volume Laterality 02/26/2020 9:02 AM EDITOR MAP Impressions 02/26/2020 9:03 AM EDITOR MAP Negative. RECOMMENDATION: ??Annual Screening Mammo gram ASSESSMENT: ??BI-RADS: 1: Negative. Narrative 02/26/2020 9:03 AM EDITOR MAP EXAM: ??BI BREAST SCREENING BILATERAL WITH TOMOSYNTHESIS Current study was evaluated with a Aptan[place] ter Aided Detection (CAD) system. INDICATION: ??Screening mammogram. COMPARISON: ??None, this is a baseline s creening exam. DENSITY: ??c. The breast(s) are heteroge neously dense, which may obscure small masses. FINDINGS: ??No mammographic findings of malignancy. Procedure Note Romaine Dow M.D. - 02/26/2020Formatt ing of this note might be different from the original. EXAM: BI BREAST SCREENING BILATERAL WITH TOMOSYNTHESIS Current study was evaluated with a Compu ter Aided Detection (CAD) system. INDICATION: Screening mammogram. COMPARISON: None, this is a baseline scr eening exam. DENSITY: c. The breast(s) are heterogene ously dense, which may obscure small masses. FINDINGS: No mammographic findings of ma lignancy. IMPRESSION: Negative. RECOMMENDATION: Annual Screening Mammogr am ASSESSMENT: BI-RADS: 1: Negative. Oliva Young P.A.-C. IMG BI PROCEDURES (ABNORMAL) Lipid Panel (02/25/2020 10:53 AM EDITOR MAP) P athologist Signature Cholesterol, 208 (H) mg/dL 02/25/2020 [place] Total 12:15 PM EDITOR MAP Comment: ----REFERENCE VALUE---- Desirable: < 200 Borderline high: 200 - 239 High: > or = 240 Triglycerides 44 mg/dL 02/25/2020 12:15 PM EDITOR MAP OW AT Comment: ----REFERENCE VALUE---- Normal: <150 Borderline high: 150-199 High: 200-499 Very high: > or =500 Cholesterol, HDL 96 >=50 mg/dL 02/25/2020 12:15 PM CS T [place] Calculated LDL 103 mg/dL 02/25/2020 12:15 PM EDITOR MAP O [place]ON Comment: ----REFERENCE VALUE---- Desirable: <100 Above Desirable: 100-129 Borderline high: 130-159 High: 160-189 Very high: > or =190 Cholesterol, Non-HDL, Calculated 112 mg/dL 020 12:15 PM EDITOR MAP [facility] Comment: ----REFERENCE VALUE---- Desirable: <130 Above Desirable: 130-159 Borderline high: 160-189 High: 190-219 Very high: > or =220 Specimen Anatomical Collection Method Collection Time Receive d Time (Source) Location / / Volume Laterality Blood (Blood, 02/25/2020 10:53 02/25/2020 Venous) AM EDITOR MAP 10:54 AM EDITOR MAP Oliva Young P.A.-C. LAB BLOOD ADD-ON Performing Organization Address City/State/ZIP Code Phon e Number [facility]- [address] [place] [address] [facility] [place] [address] System in [place] [address] [facility] documented in this encounter Visit Diagnoses Diagnosis Screening Mammogram Breast Cancer - Prim ted Encounter For Screening For Cardiovascul ar Disorders Herpes Genitalis Other Specified Anxiety Disorders Screening Mammogram Breast Cancer documented in this encounter Care Teams Bank Sales And Service Manager Relationship Specialty Start Date End Date Oliva Young P.A.-C. PCP - General Family Medicine 02/04/[address] [place] [address] documented as of this encounter
--- OUTSIDE RECORDS SUMMARY | 2021-12-21 01:42 | XMS_ITS | Encounter Summary ---
:1980 Author Organization [facility] Address [address] [place] [address] Care Team Providers Name Role Phone Oliva Young P.A.-C. Primary Care Provider Encounter Details Date Type Department Care Team Description 02/16/2020 Orders Only Department of Family Oliva Young Preo perative Exam Medicine, Kassie Quintero (Primary Dx) Clinic, in [facility] [address] [address] [place], [place] [phone] [address] (Work) [phone] Social History Tobacco Use Types Packs/Day Years Used Date Smoking Tobacco: Former Cigarettes Smokeless Tobacco: Never Comments: Quit 2005 Alcohol Use Standard Drinks/Week Comments Yes 0 (1 standard drink = 0.6 oz pure alcoho l) Alcohol Habits Answer Date Recorded How often do you have a drink containing 4 or more times a w [place] 02/04/2020 alcohol? How many drinks containing alcohol [...] or relatives? How often do you attend congregation or pentecostal More than 4 time s per year 02/02/2020 services? Do you belong to any clubs or organizations Yes 02/02/2020 such as congregation groups, unions, fraternal or athletic groups, or [...] on filedocumented as of this encounter Results CBC with Differential, Blood (02/25/2020 10:53 AM DOCUMENT REVIEWER) P athologist Signature Hemoglobin 12.5 11.6 - 02/25/2020 [place] 15.0 g/dL 11:03 AM DOCUMENT REVIEWER Hematocrit 38.6 35.5 - 02/25/2020 [place] 44.9 % 11:03 AM DOCUMENT REVIEWER Erythrocytes 3.99 3.92 - 02/25/2020 [place] 5.13 11:03 AM DOCUMENT REVIEWER x10(12)/L MCV 96.7 78.2 - 02/25/2020 [place] 97.9 fL 11:03 AM DOCUMENT REVIEWER RBC Distrib Width 12.2 12.2 - 02/25/2020 [place] 16.1 % 11:03 AM DOCUMENT REVIEWER Platelet Count 251 157 - 371 02/25/2020 [place] x10(9)/L 11:03 AM DOCUMENT REVIEWER Leukocytes 5.2 3.4 - 9.6 02/25/2020 [place] x10(9)/L 11:03 AM DOCUMENT REVIEWER Neutrophils 2.62 1.56 - 02/25/2020 [place] 6.45 11:03 AM DOCUMENT REVIEWER x10(9)/L Lymphocytes 1.74 0.95 - 02/25/2020 [place] 3.07 11:03 AM DOCUMENT REVIEWER x10(9)/L Monocytes 0.54 0.26 - 02/25/2020 [place] 0.81 11:03 AM DOCUMENT REVIEWER x10(9)/L Eosinophils 0.21 0.03 - 02/25/2020 [place] 0.48 11:03 AM DOCUMENT REVIEWER x10(9)/L Basophils 0.04 0.01 - 02/25/2020 [place] 0.08 11:03 AM DOCUMENT REVIEWER x10(9)/L Specimen Anatomical Collection Method Collection Time Receive d Time (Source) Location / / Volume Laterality Blood (Blood, 02/25/2020 10:53 02/25/2020 Venous) AM DOCUMENT REVIEWER 10:54 AM DOCUMENT REVIEWER Oliva Young P.A.-C. LAB BLOOD ADD-ON Performing Organization Address City/State/ZIP Code Phon e Number [facility]- [address] [place] [address] [facility] [place] [address] System in [place] [address] documented in this encounter Visit Diagnoses Diagnosis Preoperative Exam - Primary documented in this encounter Care Teams Pattern Scratcher Relationship Specialty Start Date End Date Oliva Young P.A.-C. PCP - General Family Medicine 02/04/[address] [place] [address] documented as of this encounter
--- OUTSIDE RECORDS SUMMARY | 2021-12-21 01:42 | XMS_ITS | Encounter Summary ---
:1980 Author Organization [facility] Address [address] [place] [address] Care Team Providers Name Role Phone Oliva Young P.A.-C. Primary Care Provider Encounter Details Date Type Department Care Team Description 06/29/2020 Immunization Department of [facility] Aron Hernandez For COVID-19 Medicine, [place] Donnie Fischer Vaccine Immunization Professional Building, [address] in [employer] [address] [place] [address] [phone] Social History Tobacco Use Types Packs/Day Years Used Date Smoking Tobacco: Former Cigarettes Smokeless Tobacco: Never Comments: Quit 2006 Alcohol Use Standard Drinks/Week Comments Yes 0 (1 standard drink = 0.6 oz pure alcoho l) Alcohol Habits Answer Date Recorded How often do you have a drink containing 4 or more times a w [place] 02/04/2020 alcohol? How many drinks containing alcohol [...] or relatives? How often do you attend taoist or sikh More than 4 time s per year 02/02/2020 services? Do you belong to any clubs or organizations Yes 02/02/2020 such as taoist groups, unions, fraternal or athletic groups, or [...] Diagnosis Encounter For COVID-19 Vaccine Immunizat ion documented in this encounter Care Teams Assistant Boys Track Coach Relationship Specialty Start Date End Date Oliva Young P.A.-C. PCP - General Family Medicine 02/04/[address] [address] documented as of this encounter
--- OUTSIDE RECORDS SUMMARY | 2021-12-21 01:42 | XMS_ITS | Encounter Summary ---
:1980 Author Organization [facility] Address [address] [place] [address] Care Team Providers Name Role Phone Oliva Young P.A.-CAma Primary Care Provider Reason for Visit Reason Comments Med Refill Encounter Details Date Type Department Care Team Description 07/15/2020 Refill Department of Family Medicine, Oliva Leiva, P.A.-CAma Med Refill [facility], in [place], [address] [place] [address] [address] [place] [address] [facility] [phone] Social History Tobacco Use Types Packs/Day Years Used Date Smoking Tobacco: Former Cigarettes Smokeless Tobacco: Never Comments: Quit 2005 Alcohol Use Standard Drinks/Week Comments Yes 0 (1 standard drink = 0.6 oz pure alcoho l) Alcohol Habits Answer Date Recorded How often do you have a drink containing 4 or more times a w [place] 02/04/2020 alcohol? How many drinks containing alcohol [...] How often do you attend taoist or oriental orthodox More than 4 time s per year [...] Disorders documented in this encounter Care Teams Linen Attendant Relationship Specialty Start Date End Date Oliva Young P.A.-C. PCP - General Family Medicine 02/04/[address] [address] documented as of this encounter
--- OUTSIDE RECORDS SUMMARY | 2021-12-21 01:42 | XMS_ITS | Encounter Summary ---
:1980 Author Organization [facility] Address [address] [place] [address] Care Team Providers Name Role Phone Unavailable Primary Care Provider Unavailable Reason for Visit Reason Comments Med Refill Encounter Details Date Type Department Care Team Description 11/17/2019 Refill Department of Internal Juan Cat D.O. Med Refill Medicine in [facility] [address] [place] [address] [address] [place] [address] [facility] [phone] Social History Tobacco Use Types Packs/Day Years Used Date Smoking Tobacco: Never Alcohol Habits Answer Date Recorded How often do you have a drink containing 4 or more times a w [place] 02/04/2020 alcohol? How many drinks containing alcohol [...] or relatives? How often do you attend druze or jew More than 4 time s per year 02/02/2020 services? Do you belong to any clubs or organizations Yes 02/02/2020 such as druze groups, unions, fraternal or athletic groups, or [...]
--- OUTSIDE RECORDS SUMMARY | 2021-12-21 01:42 | XMS_ITS | Encounter Summary ---
:1980 Author Organization [facility] Address [address] [place] [address] Care Team Providers Name Role Phone Oliva Young P.A.-C. Primary Care Provider Reason for Visit Reason Comments Pre-op Exam 03-25-20 Appointment Request (Routine) - Closed Specialty Diagnoses / Procedures Referred By Contact Refer red To Contact Family Medicine Referral ID Status Reason Start Date Expiration Date Visits Requ ested Visits Authorized [id number] Closed 02/10/2020 02/09/2021 1 1 Encounter Details Date Type Department Care Team Description 03/11/2020 Office Visit Department of Family Oliva Young Preo perconnie Exam Medicine, [facility] Quintero (Primary Dx) Clinic, in [place] [address] [place], [place] [address] [address] [place], [place] [phone] [address] (Work) [phone] Social History Tobacco Use Types Packs/Day Years Used Date Smoking Tobacco: Former Cigarettes Smokeless Tobacco: Never Comments: Quit 2005 Alcohol Use Standard Drinks/Week Comments Yes 0 (1 standard drink = 0.6 oz pure alcoho l) Alcohol Habits Answer Date Recorded How often do you have a drink containing 4 or more times a w [place] 02/04/2020 alcohol? How many drinks containing alcohol [...] or relatives? How often do you attend hinduism or cheondoism More than 4 time s per year 02/02/2020 services? Do you belong to any clubs or organizations Yes 02/02/2020 such as hinduism groups, unions, fraternal or athletic groups, or [...] Sign Reading Time Taken Comments Blood Pressure 116/68 03/11/2020 3:17 PM SANITARIAN Pulse 76 03/11/2020 3:17 PM SANITARIAN Temperature 36.2 ??C (97.2 ??F) 03/11/2020 3:17 PM SANITARIAN Respiratory Rate - - Oxygen Saturation - - Inhaled Oxygen Concentration - - Weight 98.1 kg (216 lb 4.3 oz) 03/11/2020 3:17 PM SANITARIAN Height 173 cm (5' 8.11) 03/11/2020 3:17 PM SANITARIAN Body Mass Index 32.78 03/11/2020 3:17 PM SANITARIAN documented in this encounter Progress Notes Oliva Young P.A.-C. - 03/11/2020 3:30 PM CST FAMILY MEDICINE PREOPERATIVE EXAM: PROPOSED SURGERY DATE: 03/25/2020. SURGEON: Dr. Aron Fraser. PROPOSED SURGERY: Breast augmentation and abdominoplasty. LOCATION: [facility]. SUBJECTIVE HISTORY OF PRESENT ILLNESS Solange Cat is a pleasant 39 y.o. female who presents to the clinic today for preoperative anesthetic medical exam for the above-mentioned procedure. She states she is feeling well and has no complaints at this time. REVIEW OF SYSTEMS Constitutional: Negative for fever and night sweats. Skin: Negative for skin rash and breast lump. Eyes: Negative for visual problems. ENT: Negative for difficulty hearing and sinus congestion. Respiratory: Negative for dyspnea and wheezing. Cardiovascular: Negative for chest pain, pressure or tightness and rapid or fluttering heart beat. Gastrointestinal: Positive for heartburn. Negative for constipation and diarrhea. Genitourinary: Negative for abnormal vaginal bleeding and pain with urination. Hematologic: Negative for bruises or bleeds easily. Neurological: Negative for seizures and headaches. Psychiatric/Behavioral: Negative for snores loudly. The following portions of the patient's history were reviewed and updated as appropriate: allergies,current medications, family history, medical history, social history, surgical history and problem list. No Known Allergies Current Outpatient Medications: ??? LORazepam (ATIVAN) 0.5 mg tablet, Take 1 tablet (0.5 mg total) by mouth 3 (three) times a day asneeded for anxiety (panic attacks)., Disp: 5 tablet, Rfl: 0 ??? prenat.vits,juan,iaw-aflh-vmpkq tablet, Take 1 tablet by mouth., Disp: , Rfl: ??? venlafaxine XR (EFFEXOR-XR) 75 mg 24 hr capsule, Take 1 capsule (75 mg total) by mouth daily., Disp: 90 capsule, Rfl: 3 OBJECTIVE VITAL SIGNS BP 116/68 (Patient Position: Sitting, Cuff Size: Regular) Pulse 76 Temp 36.2 ??C (Temporal) Ht173 cm Wt 98.1 kg BMI 32.78 kg/m?? PHYSICAL EXAMINATION General: Well-nourished, well-developed 39 y.o. in no apparent distress. Awake, alert, age appropriate. HEENT: Head is normocephalic, atraumatic. Pupils round and reactive bilaterally. EOM's intact. Conjunctiva and sclera are clear. TM's are normal bilaterally. Oropharynx pink and moist without exudate or erythema. Mallampati I. Neck: Neck is supple without lymphadenopathy. Cardiovascular: Regular rate and rhythm without murmurs. Lungs: Clear to auscultation bilaterally with no adventitious sounds Abdomen: Bowel sounds present in all quadrants. Soft, non-tender with no palpable organomegaly. Skin: Warm, pink, and dry. No rashes or lesions Extremities: No peripheral edema. Neurologic: Alert and oriented x3. Bilateral patellar tendon DTRs 2+/4+. LABS (02/24/2021) Hemoglobin 11.6 - 15.0 g/dL 12.5 Hematocrit 35.5 - 44.9 % 38.6 Erythrocytes 3.92 - 5.13 x10(12)/L 3.99 MCV 78.2 - 97.9 fL 96.7 RBC Distrib Width 12.2 - 16.1 % 12.2 Platelet Count 157 - 371 x10(9)/L 251 Leukocytes 3.4 - 9.6 x10(9)/L 5.2 Neutrophils 1.56 - 6.45 x10(9)/L 2.62 Lymphocytes 0.95 - 3.07 x10(9)/L 1.74 Monocytes 0.26 - 0.81 x10(9)/L 0.54 Eosinophils 0.03 - 0.48 x10(9)/L 0.21 Basophils 0.01 - 0.08 x10(9)/L 0.04 SURGICAL RISK FACTORS: 1. Cardiac: None. 2. Pulmonary: None. 3. History Bacterial Endocarditis: None. 3. Diabetes: None. 4. Obstructive sleep apnea: None. 5. Anesthesia reactions: None. 6. Bleeding or clotting disorders: None. 7.Anticoagulation: None. 8. Infection/Immunosuppression: None. 9. GERD: None. 10. History of MRSA skin infections: None. 11. Mallampati Class: I. 12. ASA Class: I. ASSESSMENT / PLAN IMPRESSION/REPORT/PLAN: #1 Preoperative Exam - This patient is medically optimized for the above-mentioned procedure. - She is capable of achieving greater than 4 METS without cardiopulmonary symptoms. - Advised no aspirin-containing products 7 days prior to procedure. - Medication instructions include: none. - CBC is normal. - COVID swab 72 hours prior to procedure. - Follow-up as needed. All questions have been answered and those present are in agreement with this plan. Oliva Young P.A.-C. TARIAN documented in this encounter Plan of Treatment Not on filedocumented as of this encounter Visit Diagnoses Diagnosis Preoperative Exam - Primary documented in this encounter Care Teams Visual Merchandiser Relationship Specialty Start Date End Date Oliva Young P.A.-C. PCP - General Family Medicine 02/04/[address] [address] documented as of this encounter
--- OUTSIDE RECORDS SUMMARY | 2021-12-21 01:42 | XMS_ITS | Encounter Summary ---
:[address] [facility] Address [address] [place] [address] Care Team Providers Name Role Phone Oliva Young P.A.-CAma Primary Care Provider Reason for Visit Reason Comments Med Refill Encounter Details Date Type Department Care Team Description 12/13/2020 Refill Department of Family Medicine, Oliva Leiva, P.A.-CAma Med Refill [facility], in [place], [address] [place] [address] [address] [place] [address] [facility] [phone] Social History Tobacco Use Types Packs/Day Years Used Date Smoking Tobacco: Former Cigarettes Smokeless Tobacco: Never Comments: Quit 2005 Alcohol Use Standard Drinks/Week Comments Yes 0 (1 standard drink = 0.6 oz pure alcoho l) Alcohol Habits Answer Date Recorded How often do you have a drink containing 4 or more times a w [place] 02/04/2020 alcohol? How many drinks containing alcohol [...] or relatives? How often do you attend gnosticist or muslim More than 4 time s per year 02/02/2020 services? Do you belong to any clubs or organizations Yes 02/02/2020 such as gnosticist groups, unions, fraternal or athletic groups, or [...] Notes Telephone Encounter - Jackie Mcgarry - 12/24/2020 9:16 AM CDT Called and left message for patient to call back and schedule an appt per previous message. Telephone Encounter - Oliva Young P.A.-C. - 12/20/2020 5:17 PM CDT Small refill provided. I really think we need to address your underlying generalized anxiety to minimize need for medication like Ativan. Please follow- up with me to discuss this for further refills. documented in this encounter Plan of Treatment Not on filedocumented as of this encounter Visit Diagnoses Diagnosis Other Specified Anxiety Disorders documented in this encounter Care Teams Software Publisher Relationship Specialty Start Date End Date Oliva Young P.A.-C. PCP - General Family Medicine 02/04/[address] [address] documented as of this encounter
--- OUTSIDE RECORDS SUMMARY | 2021-12-21 01:42 | XMS_ITS | Encounter Summary ---
:1980 Author Organization [facility] Address [address] [place] [address] Care Team Providers Name Role Phone Unavailable Primary Care Provider Unavailable Encounter Details Date Type Department Care Team Description 09/12/2016 Hospital Encounter HX [facility] Douglas Marcus P.AAma-C. [address] [place], [place] [address] (Wo rk) Social History Tobacco Use Types Packs/Day Years Used Date Smoking Tobacco: Never Alcohol Habits Answer Date Recorded How often do you have a drink containing 4 or more times a w [place] 02/04/2020 alcohol? How many drinks containing alcohol [...] How often do you attend congregation or jew More than 4 time s [...] tablet mouth. documented as of this encounter Progress Notes Bree Collier C.M.A. - 09/12/2016 1:33 PM CDT Wound Care/Clinic Wound Care/Clinic Entered On: 09/12/2016 13:34 CDT Performed On: 09/12/2016 13:33 CDT by BREE COLLIER C.M.A. Incision/Wound Incision/Wound Care Grid Activity : Suture Removal Type : Surgical incision Location : Knee Laterality : Right Description : Well healed Color : [place] Drainage : None Surrounding Tissue : No signs or symptoms of localized infection BREE COLLIER C.M.A. - 09/12/2016 13:33 CDT Source: [facility] Document Id: [id number] CDT!12 Douglas Rey - 09/12/2016 10:06 AM CDT [id number] CHIEF COMPLAINT/REASON FOR VISIT Postoperative visit. HISTORY OF PRESENT ILLNESS Skinny is here now 2 weeks out from a right knee arthroscopic partial medial meniscectomy. Surgery wasperformed by Dr. Mason on 08/28/2016. She is doing very well. Her symptoms were alleviated almost immediately. She notes a little bit of stiffness and soreness. She would like to get back to her regular workout activities. She does not kneel on her knee but otherwise she has no complaints. PHYSICAL EXAMINATION Extremities: Inspection of right knee shows well-healed portal incisions. All sutures <__IM_1: BLANK __> without difficulty. No erythema or drainage. Range of motion 0 to 125 degrees. Right lowerextremity is neurovascularly intact distally. IMPRESSION/REPORT/PLAN Status post right knee arthroscopic partial medial meniscectomy. Skinny is shown her intraoperative arthroscopy pictures. The procedure was discussed with her in detail. She is encouraged to work on stretching strengthening exercises, slowly resume her normal activities. She will follow up with Dr. Mason in 1 month's time, sooner if there are any problems. Douglas Rey P.A.-C./maría elena Electronically Signed By: DOUGLAS REY On: 09/13/2016 11:46 PM Source: [facility] [email or web address] Document Id: [id number] documented in this encounter Miscellaneous Notes Miscellaneous - Douglas Rey - 09/13/2016 1:39 PM CDT Ambulatory Patient Summary [address] [id number] Visit Information Name: SKINNY PEÑA [facility] Number: [id number] Current Date: 09/13/2016 13:39:31 Physicians Attending Provider: DOUGLAS REY Primary Care Provider: PCP, WARNER BRENDONLukeSKINNY VELAZQUEZ has been given the following list of follow-up instructions, medication list, and patient education materials: Follow-up Instructions Your Medications Here is a list of your medications. It is important to take your medications as directed. Use a pillbox or chart to help remind you to take your medications. Please let your doctor or nurse know if you have problems taking your medications. Medication/Strength How to Take Indications/Special Instructions/Comments/Notes for Patient Medication Changes/Routing multivitamin (multivitamin) once a day Stop Taking the Following Medications: Medication list as of 09-13-16 13:39 Attention: If you have any medications at home that are not on this list, DO NOT take them until youcontact your provider for clarification. Give a copy of your medication list to your primary care provider. Update your medication list any time medications or doses are changed and carry your medication list at all times in case of emergency. Electronically Signed By: DOUGLAS REY Signed On:13-SEP-2016 13:39:30 Your Allergies & Intolerances Substance Reaction Symptoms Category Comments No Known Allergies Drug Your Problem List Problem Status Onset Comments Deranged Medial Meniscus R Active Your Upcoming Appointments Date Time Location Provider 10/11/2016 10:45 ELIZABETH Mason MD, [facility] Attention: Contact your local Clinic if further appointment detail needed. Consider Using Patient Online Services Patient Online Services is a secure online and Mobile application that lets you: ?? View lab and test results ?? View portions of your medical record including clinical notes, immunizations and discharge summaries ?? Request an appointment or medication refill ?? Review your appointment schedule ?? Send secure messages to your care team Its easy to create an account if you dont have one. Go to [email or web address] and click on Create Your Account. Then, follow the directions to complete the online form. Youll be asked for your [facility] number which you can find at the top of this document. Your Goals/Additional instructions: Source: [facility] POWERCHART Document Id: [id number] Miscellaneous - Douglas Rey - 09/13/2016 1:39 PM CDT Ambulatory Discharge Medication List [facility] [address] [place] [id number] Visit Information Name: BRENDONJUJoceTHIERRYDY [facility] Number: [id number] Current Date: 09/13/2016 13:39:31 Attending Provider: DOUGLAS REY Primary Care Provider: PCP, WARNER PEÑASKINNY has been given the following list of medications: Your Medications It is important to take your medications as directed. Use a pill box or chart to help remind you to take your medications. Please let your doctor or nurse know if you have problems taking your medications. Medication/Strength How to Take Indications/Special Instructions/Comments/Notes for Patient Medication Changes/Routing multivitamin (multivitamin) once a day Stop Taking the Following Medications: Medication list as of 09-13-16 13:39 Attention: If you have any medications at home that are not on this list, DO NOT take them until youcontact your provider for clarification. Give a copy of your medication list to your primary care provider. Update your medication list any time medications or doses are changed and carry your medication list at all times in case of emergency. Electronically Signed By: DOUGLAS REY Signed On:13-SEP-2016 13:39:30 Additional Information: [facility] Document Id: [id number] Miscellaneous - Bree Collier C.M.A. 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 Intake Chief Complaint : - 2 week post op right knee arthroscopy, right partial medial menisectomy - pain rated /10 BREE COLLIER C.M.A. - 09/12/2016 10:16 CDT General Info Information Given By : Patient Languages : Setswana Is Patient Female and 13-50 no hysterectomy : Yes Status : Patient denies Are you ? : No BREE COLLIER C.M.A. - 09/12/2016 10:16 CDT Subjective Pain Symptoms : Yes BREE COLLIER C.M.A. - 09/12/2016 10:16 CDT Pain Scale Pain Scale Verbal 0-10 : Open BREE COLLIER C.M.A. - 09/12/2016 10:16 CDT Pain Pain Assessment Grid Pain 1 Location : Knee Laterality : Right Intensity : 1 BREE COLLIER C.M.A. - 09/12/2016 10:16 CDT Dependent Habits Smoking Status : Never smoker Tobacco 2A : No Tobacco Use/Currently Using : No Tobacco Use/Last 30 Days : No Tobacco Use/Last 12 months : No BREE COLLIER C.M.A. - 09/12/2016 10:16 CDT [facility] Document Id: [id number] CDT!25 documented in this encounter Plan of Treatment Not on filedocumented as of this encounter Visit Diagnoses Not on filedocumented in this encounter
--- OUTSIDE RECORDS SUMMARY | 2021-12-21 01:42 | XMS_ITS | Encounter Summary ---
:1980 Author Organization [facility] Address [address] [place] [address] Care Team Providers Name Role Phone Unavailable Primary Care Provider Unavailable Encounter Details Date Type Department Care Team Description 08/22/2016 Hospital Encounter [facility] O[facility] Gregory M.D. [address] [place], [place] [phone] (Wo rk) Social History Tobacco Use Types Packs/Day Years Used Date Smoking Tobacco: Never Assessed Alcohol Habits Answer Date Recorded How often do you have a drink containing 4 or more times a w [place] 02/04/2020 alcohol? How many drinks containing alcohol [...] How often do you attend gnosticist or yarsanism More than 4 time s [...] Comments Blood Pressure - - Pulse 62 08/22/2016 3:52 PM CDT Temperature - - Respiratory Rate 16 08/22/2016 3:52 PM CDT Oxygen Saturation - - Inhaled Oxygen Concentration - - Weight 96.3 kg (212 lb 4.9 oz) 08/22/2016 3:52 PM CDT Height - - Body Mass Index - - documented in this encounter Medications at Time of Discharge Medication Sig Dispensed Refills Start Date End Date prenat.vits,juan,min-iron-f Take 1 tablet by 0 10/2012 olic tablet mouth. valACYclovir (VALTREX) 500 Take 500 mg by 0 03/1811/19/2019 mg tablet mouth. documented as of this encounter Consult Notes Evy Mahmood M.D. - 08/22/2016 3:43 PM CDT [id number] CHIEF COMPLAINT/REASON FOR VISIT Seen at the request of Janet Wilhelm MD from [place]. HISTORY OF PRESENT ILLNESS Patient is a 36-year-old female with right knee pain. She has had problems with that knee for a while but after doing some gardening she noticed increasing pain about 4 months ago. It swelled up significantly. Then it got better. Then it swelled up again here more recently and now that it has been painful medially for the last couple of weeks. She does gets some popping and catching and grinding in the knee. She has been limping and she has he does get some sharp pains if she steps and twists wrong.She had an MRI scan of the knee which shows horizontal tearing of the posterior body and posterior horn of the medial meniscus with a tiny flap fragment. She has got some reactive marrow edema of the medial tibial plateau. She has some patellofemoral arthritic change. Cruciate ligaments and lateral meniscus are intact. She does have a moderate size popliteal cyst and still has an effusion. Does have some mild to moderate semimembranosus and tibial collateral ligament bursitis as well. MEDICATIONS As per Orthopedic intake sheet. ALLERGIES As per Orthopedic intake sheet. She has no known drug allergies. SYSTEMS REVIEW As per Orthopedic intake sheet. PAST MEDICAL/SURGICAL HISTORY As per Orthopedic intake sheet. SOCIAL HISTORY As per Orthopedic intake sheet. She is a former smoker. Drinks alcohol, about 7 drinks a week. FAMILY HISTORY As per Orthopedic intake sheet. PAST MEDICAL/SURGICAL HISTORY GENERAL: She is a well-developed, well-nourished, pleasant, 36-year-old female, no acute distress. Oriented x3. Mood and affect are normal. VITAL SIGNS: As per nurse's note that were taken today. GAIT: She ambulates with a little bit of a stiff-legged antalgic gait favoring the right side. EXTREMITIES: Right knee has good range of motion 0 to at least 125 degrees. Stable ligamentously. Noswelling, redness or warmth. She does have a mild effusion. She does have medial joint line tenderness. Good range of motion of the right hip. Motor and sensation are intact in bilateral lower extremities. Bilateral feet are pink and warm. IMPRESSION/REPORT/PLAN Right knee medial meniscus tear. Also has a popliteal cyst. Some tendinitis. Some reactive marrow edema. Her symptoms are mainly from that meniscus tear I think the other stuff is secondary to that. PLAN: I have offered her right knee arthroscopy, partial medial meniscectomy. Risks and benefits were discussed with the patient, infection, bleeding, nerve and vessel injury, and she does wish to proceed with surgery. Evy Mahmood M.D./maría elena Electronically Signed By: EVY MAHMOOD MD On: 08/23/2016 08:27 AM Source: [facility] [email or web address] Document Id: [id number] documented in this encounter Nursing Notes Brayden Mccarthy L.P.N. - 08/22/2016 4:23 PM CDT Surgery ed Surgical Education was given to the patient today forRight knee menicus tear , to be scheduled withDr. Evy Mahmood . All questions were answered and the patient verbalized understanding of all information and instructions given. Surgery scheduling met with patient and scheduled surgery and pre and post- operative appointments. Electronically Signed By: BRAYDEN MCCARTHY LPN On: 08/22/2016 04:24 PM Source: [facility] POWERCHART Document Id: [id number] documented in this encounter Miscellaneous Notes Miscellaneous - Conversion, Historical Provider Ser - 08/23/2016 10:01 AM CDT SURGERY DATE From: TILA CHOI To: Orthopedic Nurse; Sent: 08/23/2016 10:01:21 CDT Subject: SURGERY DATE Caller is: ( ) Patient ( ) Mother ( ) Father ( ) Spouse ( ) Daughter ( ) Son ( ) Pharmacy ( ) Other: Physician: ELA Patient MRN #: Reason for Call: PREOP DATE: 08/24/16 DR. FABY ROSENBAUM Message: S: SURGERY DATE: 08/28/16 B: REQUEST FOR SURGERY: RIGHT KNEE ARTHROSCOPY, RIGHT PARTIAL MEDIAL MENISECTOMY A: RISK ASSESSMENT: LOW ANESTHESIA: CHOICE R: HOSPITAL WILL CALL WITH ARRIVAL TIME Advice/Action: Source used: ( ) Verbalizes understanding of instructions ( ) Instructed to call back if symptoms worsen or do not resolve ( ) Refused to see provider ( ) Appointment Scheduled ( ) OK to leave message on voice mail ( ) Patient told to expect return call: ( ) today ( ) tomorrow ( ) next work day ( ) Patient's email ( ) Patient told physician out of office, will call upon return call on ( ) ( ) Patient told physician out of office, routed to other physician ( ) Other ( ) Call back telephone number ( ) Call back cell phone number ( ) Source: [facility] Youbetme Document Id: [id number] Miscellaneous - Evy Mahmood M.D. - 08/22/2016 4:17 PM CDT Ambulatory Patient Summary [facility] [address] [place] [id number] Visit Information Name: SKINNY PEÑA [facility] Number: [id number] Current Date: 08/22/2016 16:17:39 Physicians Attending Provider: EVY MAHMOOD MD Primary Care Provider: PCP, ELSEWHERE SKINNY PEÑA has been given the following list of [...] Take Indications/Special Instructions/Comments/Notes for Patient Medication Changes/Routing No Medications found Stop Taking the Following Medications: Medication list as of 08-22-16 16:17 Attention: If you have any medications at home that are not on this list, DO NOT take them until youcontact your provider for clarification. Give a copy of your medication list to your primary care provider. Update your medication list any time medications or doses are changed and carry your medication list at all times in case of emergency. Electronically Signed By: EVY MAHMOOD MD Signed On:22-AUG-2016 16:17:36 Your Allergies & Intolerances Substance Reaction Symptoms Category Comments No Allergies found Your Problem List Problem Status Onset Comments No Problems found Your Upcoming Appointments Date Time Location Provider No Appointments found Attention: Contact your local Clinic if further [...] if you dont have one. Go to [email or web address] and click on Create Your Account. Then, follow the directions to complete the online form. Youll be asked for your [facility] number which you can find at the top of this document. Your Goals/Additional instructions: Source: [facility] POWERCHART Document Id: [id number] Miscellaneous - Evy Mahmood M.D. - 08/22/2016 4:17 PM CDT Ambulatory Discharge Medication List [facility] [address] [place], [place] [id number] Visit Information Name: SKINNY PEÑA [facility] Number: [id number] Current Date: 08/22/2016 16:17:38 Attending Provider: EVY MAHMOOD MD Primary Care Provider: PCP, SKINNY HAYDEN has been given the following list of medications: Your Medications It is important to take your medications as directed. Use a pill box or chart to help remind you to take your medications. Please let your doctor or nurse know if you have problems taking your medications. Medication/Strength How to Take Indications/Special Instructions/Comments/Notes for Patient Medication Changes/Routing No Medications found Stop Taking the Following Medications: Medication list as of 08-22-16 16:17 Attention: If you have any medications at home that are not on this list, DO NOT take them until youcontact your provider for clarification. Give a copy of your medication list to your primary care provider. Update your medication list any time medications or doses are changed and carry your medication list at all times in case of emergency. Electronically Signed By: EVY MAHMOOD MD Signed On:22-AUG-2016 16:17:36 Additional Information: Source: [facility] POWERCHART Document Id: [id number] Miscellaneous - Brayden Mccarthy L.P.N. 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 Possible meniscus tear. Peripheral Pulse Rate : 62 /min Respiratory Rate : 16 /min Actual Weight : 96.3 kg(Converted to: 212 lb 5 oz) Dosing Weight Clinic : 96.3 kg BRAYDEN MCCARTHY LPN - 08/22/2016 15:52 CDT General Info Information Given By : Patient Languages : Cymro Is Patient Female and 13-50 no hysterectomy : Yes Status : Patient denies Are you ? : No BRAYDEN MCCARTHY LPN - 08/22/2016 15:52 CDT Subjective Pain Symptoms : Yes BRAYDEN MCCARTHY LPN - 08/22/2016 15:52 CDT Pain Scale Pain Scale Verbal 0-10 : Open BRAYDEN MCCARTHY LPN - 08/22/2016 15:52 CDT Pain Pain Assessment Grid Pain 1 Location : Knee Laterality : Right Intensity : 2 BRAYDEN MCCARTHY LPN - 08/22/2016 15:52 CDT Dependent Habits Smoking Status : Never smoker Tobacco 2A : No Tobacco Use/Currently Using : No Tobacco Use/Last 30 Days : No Tobacco Use/Last 12 months : No BRAYDEN MCCARTHY LPN - 08/22/2016 15:52 CDT Allergy (As Of: 08/22/2016 15:55:07 CDT) [facility] Document Id: [id number] CDT!29 documented in this encounter Plan of Treatment Not on filedocumented as of this encounter Visit Diagnoses Not on filedocumented in this encounter
--- OUTSIDE RECORDS SUMMARY | 2021-12-21 01:42 | XMS_ITS | Encounter Summary ---
:1980 Author Organization [facility] Address [address] [place] [address] Care Team Providers Name Role Phone Unavailable Primary Care Provider Unavailable Reason for Visit Reason Onset Date Comments Outpatient COVID-19 Testing 09/15/2019 Encounter Details Date Type Department Care Team Description 09/15/2019 External Outreach Department of [facility] Infect ion Upper Internal Medicine in J, D.O. Respiratory (Primary [place], [place] [address] Dx) [address] [place] [phone] Social History Tobacco Use Types Packs/Day Years Used Date Smoking Tobacco: Never Alcohol Habits Answer Date Recorded How often do you have a drink containing 4 or more times a w [place] 02/04/2020 alcohol? How many drinks containing alcohol [...] or relatives? How often do you attend hindu or temple More than 4 time s per year 02/02/2020 services? Do you belong to any clubs or organizations Yes 02/02/2020 such as hindu groups, unions, fraternal or athletic groups, or [...] documented as of this encounter Progress Notes [place], Rachael L, R.N. - 09/15/2019 3:47 PM CDT Encounter created for the drive-through COVID-19 testing. documented in this encounter Plan of Treatment Not on filedocumented as of this encounter Procedures Procedure Name Priority Date/Time Associated Diagnosis Comme nts SARS CORONAVIRUS-2 Routine 09/15/2019 5:53 PM Infection Upper Results for this RNA, V CDT Respiratory procedure are i n the results section. documented in this encounter Results SARS Coronavirus-2 RNA, V Symptomatic (09/15/2019 5:53 PM CDT) [facility] Method Time Signature SARS-CoV-2 Swab, 09/16/2019 [place] Specimen Nasopharynx 8:20 PM CDT Source SARS CoV-2 Undetected Undetected 09/16/2019 [facility] RNA, TMA 8:20 PM CDT Comment: SARS-CoV-2 RNA absent. This result does not rule out COVID-19 in the patient, as the sensitivity of the test depends o n the timing of the specimen collection and the quality of the specim en. Result should be correlated with patient's history and clinical presentat ion. ----ADDITIONAL INFORMATION---- This test is performed using the Aptima SARS-CoV-2 assay ([employer] which has received Emergency Use Authori zation (EUA) by the U.S. Food and Drug Administration. Fact sheets for this Emergency Use Autho rization (EUA) assay can be found at the following links: For Healthcare Providers: https://www.fd a.gov/media/086759/download For Patients: https://www.fda.gov/media/ 239293/download Specimen Anatomical Collection Method Collection Time Receive d Time (Source) Location / / Volume Laterality Varies 09/15/2019 5:53 PM 0 8:02 (Nasopharynx) CDT PM CDT Juan Cat D.O. LAB MICROBIOLOGY - GENERAL O [place] Performing Organization Address City/State/ZIP Code Phon e Number [facility]- [address] [place] [address] [place] [address] System in [place] [address] [place] [address] documented in this encounter Visit Diagnoses Diagnosis Infection Upper Respiratory - Primary documented in this encounter Additional Health Concerns Infection Onset Date Last Indicated Resolved Time COVID19 Pending 09/15/2019 09/15/2019 09/16/2019 8:20 PM CDT documented as of this encounter
--- OUTSIDE RECORDS SUMMARY | 2021-12-21 01:42 | XMS_ITS | Encounter Summary ---
:1980 Author Organization [facility] Address [address] [place] [address] Care Team Providers Name Role Phone Oliva Young P.A.-C. Primary Care Provider Reason for Visit Reason Onset Date Comments Testing For Upper Respiratory Virus Symptoms 11/23/2020 Encounter Details Date Type Department Care Team Description 11/23/2020 External Outreach Department of [facility] Juan Cat Contact With And Medicine, [facility] Ilda Ruggiero (Suspected) Exposure Building, in [address] [facility] (Primary [place], [place] Dx) [address] [address] [place], [place] [phone] [address] (Work) [phone] Social History Tobacco Use Types Packs/Day Years Used Date Smoking Tobacco: Former Cigarettes Smokeless Tobacco: Never Comments: Quit 2005 Alcohol Use Standard Drinks/Week Comments Yes 0 (1 standard drink = 0.6 oz pure alcoho l) Alcohol Habits Answer Date Recorded How often do you have a drink containing 4 or more times a w [place] 02/04/2020 alcohol? How many drinks [...] or relatives? How often do you attend shinto or congregational More than 4 time s per year 02/02/2020 services? Do you belong to any clubs or organizations Yes 02/02/2020 such as shinto groups, unions, fraternal or athletic groups, or [...] documented as of this encounter Progress Notes Daphnie Young R.N. - 11/23/2020 11:45 AM CDT Encounter created for symptomatic infectious disease screening with possible COVID, Influenza, RSV, and/or Group A Strep testing. documented in this encounter Plan of Treatment Not on filedocumented as of this encounter Procedures Procedure Name Priority Date/Time Associated Diagnosis Comme nts SARS CORONAVIRUS-2 Routine 11/23/2020 12:49 PM Contact With An d Results for this RNA, V CDT (Suspected) Exposure procedu re are in To COVID-19 the results section. documented in this encounter Results SARS Coronavirus-2 RNA, V Symptomatic (11/23/2020 12:49 PM CDT) [facility] Method Time Signature SARS-CoV-2 Swab, 11/24/2020 [facility] Specimen Nasopharynx 3:13 AM CDT Source SARS CoV-2 Undetected Undetected 11/24/2020 [facility] RNA, TMA 3:13 AM CDT Comment: SARS-CoV-2 RNA absent. This result does not rule out COVID-19 in the patient, as the sensitivity of the test depends o n the timing of the specimen collection and the quality of the specim en. Result should be correlated with patient's history and clinical presentat ion. ----ADDITIONAL INFORMATION---- This molecular amplification test was pe rformed using the Aptima SARS-CoV-2 assay ([employer] on the [employer] tem under emergency use authorization (EUA) by the U.S. Food and Drug Administ ration. Fact sheets for this EUA assay can be fo und at the following links: For Healthcare Providers: https://www.fd a.gov/media/815734/download For Patients: https://www.fda.gov/media/ 067191/download Specimen Anatomical Collection Method Collection Time Receive d Time (Source) Location / / Volume Laterality Varies 11/23/2020 12:49 11/23/2020 8:18 (Nasopharynx) PM CDT PM CDT Juan Cat D.O. LAB MICROBIOLOGY - GENERAL O RDERABLES Performing Organization Address City/State/[facility] Phon e Number [facility]- [address] [place] [address] [place] [address] System [address] documented in this encounter Visit Diagnoses Diagnosis Contact With And (Suspected) Exposure To COVID-19 - Primary documented in this encounter Additional Health Concerns Infection Onset Date Last Indicated Resolved Time COVID19 Pending 11/23/2020 11/23/2020 11/24/2020 3:14 AM CDT documented as of this encounter Care Teams Jewel Hole Finish Opener Relationship Specialty Start Date End Date Oliva Young P.A.-C. PCP - General Family Medicine 02/04/[address] [place] [phone] documented as of this encounter
--- OUTSIDE RECORDS SUMMARY | 2021-12-21 01:42 | XMS_ITS | Clinical Summary ---
:1980 Author Organization [facility] Address [address] [place] [address] Care Team Providers Name Role Phone Oliav Young P.A.-C. Primary Care Provider Source Comments Patient records contain information from all sites at [facility]. For routine questions regarding patient records, call [phone] during business hours, M-F 8:00 AM - 5:00 PM Central Time. Record requests for emergency care only can be directed to [phone] at any time.[facility] Allergies No known active allergies Medications Medication Sig Dispensed Refills Start Date End Date Status prenat.vits,juan,min-ir Take 1 tablet by 0 03/12/2012 Active on-folic tablet mouth. venlafaxine XR Take 1 capsule 90 capsule 3 02/04/2020 Active (EFFEXOR-XR) 75 mg 24 (75 mg total) by hr capsuleIndications: mouth daily. Other Specified Anxiety Disorders LORazepam (ATIVAN) 0.5 TAKE 1 TABLET BY 5 tablet 0 12/20/2020 Active mg tabletIndications: MOUTH 3 TIMES A Other Specified DAY NEEDED FOR Anxiety Disorders ANXIETY. 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 11/08/2021 Orders Only Oliva Young P.A.-C. Scre ening Mammogram Breast Cancer from Last 3 Months Immunizations Name Administration Dates Next Due Influenza TIV (IM) 01/06/2013, 03/12/2012 Influenza, Seasonal, Injectable 01/06/2013, 03/12/2012 SARS-COV-2 (COVID-19) - PFIZER (12 years 01/05/2021, 021, 06/03/2020 or older) Tdap 08/20/2014, 07/02/2012 influenza vaccine quad (FLUZONE/FLUARIX) 01/05/2021, 015, 01/05/2014 (6 months and older)(PF) Social History Tobacco Use Types Packs/Day Years Used Date Smoking Tobacco: Former Cigarettes Smokeless Tobacco: Never Comments: Quit 2005 Alcohol Use Standard Drinks/Week Comments Yes 0 (1 standard drink = 0.6 oz pure alcoho l) Alcohol Habits Answer Date Recorded How often do you have a drink containing 4 or more times a w [place] 02/04/2020 alcohol? How many drinks containing alcohol [...] or relatives? How often do you attend christian or restorationism More than 4 time s per year 02/02/2020 services? Do you belong to any clubs or organizations Yes 02/02/2020 such as christian groups, unions, fraternal or athletic groups, or [...] Assigned at Date Recorded Not on file Last Filed Vital Signs Vital Sign Reading Time Taken Comments Blood Pressure 116/68 03/11/2020 3:17 PM [employer]AT [employer] Pulse 76 03/11/2020 3:17 PM [employer]AT [employer] Temperature 36.2 ??C (97.2 ??F) 03/11/2020 3:17 PM FLAT POLISHER Respiratory Rate 16 10/18/2016 10:04 AM CDT Oxygen Saturation - - Inhaled Oxygen Concentration - - Weight 98.1 kg (216 lb 4.3 oz) 03/11/2020 3:17 PM [employer]AT [employer] Height 173 cm (5' 8.11) 03/11/2020 3:17 PM [employer]AT [employer]ER Body Mass Index 32.78 03/11/2020 3:17 PM FL[employer]ER Plan of Treatment Health Maintenance Due Date Last Done Comments HIV Screening 1980 Hepatitis B Vaccines (1 of 1980 3 - 3-dose series) Hepatitis C Screening 1980 Mammogram 02/24/2021 02/25/2020 COVID-19 Vaccine (4 - 03/02/2021 01/05/2021, 06/29/2020, Booster for Pfizer series) 06/03/2020 Depression Screening 03/05/2021 (Annual PHQ-2) Influenza Vaccine (#1) 2021 01/05/2021, 11/05/2014, 01/05/2014, Additional history exists Cervical Cancer Screening 01/29/2022 01/29/2019 DTaP,Tdap,and Td Vaccines 08/20/2024 08/20/2014, 07/02/2012 (3 - Td or Tdap) Lipid (Cholesterol) 02/24/2025 02/25/2020 Screening Pneumococcal vaccine (0-64 Aged Out No lo nger eligible years) based on patient 's age to complete this topic Insurance Payer Benefit Plan Subscriber ID Effective Dates Phone Address Type / Group MEDICA [facility] [id number] 2018-[place]án[place] [phone] [address] [place] [id number] PPO EMPLOYEE PLAN t [address] [id number] Care Teams Chemistry Specialist Relationship Specialty Start Date End Date Oliva Young P.AAma-Katerine. PCP - General Family Medicine 02/04/[address] [place] [phone]
--- OUTSIDE RECORDS SUMMARY | 2021-12-21 01:42 | XMS_ITS | Encounter Summary ---
:1980 Author Organization [facility] Address [address] [place] [address] Care Team Providers Name Role Phone Oliva Young P.A.-C. Primary Care Provider Reason for Referral Outpatient (Routine) - Closed Specialty Diagnoses / Procedures Referred By Contact Refer red To Contact Diagnoses Screening Mammogram Breast Cancer Oliva Young P.A.-C. [facility] Procedures BI Breast Screening Bilateral with Tomosynthesis [address] [place] [phone] Referral ID Status Reason Start Date Expiration Date Visits Requ ested Visits Authorized [id number] Closed 02/04/2020 02/03/2021 1 1 NESS SYSTEM MANAGER Reason for Visit Outpatient (Routine) - Closed Specialty Diagnoses / Procedures Referred By Contact Refer red To Contact Diagnoses Screening Mammogram Breast Cancer Oliva Young P.A.-C. [facility] Procedures BI Breast Screening Bilateral with Tomosynthesis [address] [place] [phone] Referral ID Status Reason Start Date Expiration Date Visits Requ ested Visits Authorized [id number] Closed 02/04/2020 02/03/2021 1 1 Encounter Details Date Type Department Care Team Description 02/25/2020 Hospital Encounter Department of Oliva Young Scree ning Mammogram Radiology in P.A.-C. Breast Cancer [place], [place] [address] [place] [phone] Social History Tobacco Use Types Packs/Day Years Used Date Smoking Tobacco: Former Cigarettes Smokeless Tobacco: Never Comments: Quit 2005 Alcohol Use Standard Drinks/Week Comments Yes 0 (1 standard drink = 0.6 oz pure alcoho l) Alcohol Habits Answer Date Recorded How often do you have a drink containing 4 or more times a w [place] 02/04/2020 alcohol? How many drinks containing alcohol [...] or relatives? How often do you attend moravian or worship More than 4 time s per year 02/02/2020 services? Do you belong to any clubs or organizations Yes 02/02/2020 such as moravian groups, unions, fraternal or athletic groups, or [...] encounter Procedures Procedure Name Priority Date/Time Associated Comments Diagnosis BI BREAST SCREENING RAD - Routine 02/25/2020 11:14 Screening Res ults for BILATERAL WITH (most inpatients AM BUSINESS SYSTEM MANAGER Mammogram Breast this procedure TOMOSYNTHESIS and all Cancer are in the outpatients) results section. documented in this encounter Results BI Breast Screening Bilateral with Tomosynthesis (02/25/2020 11:14 AM BUSINESS SYSTEM MANAGER) Anatomical Region Laterality Modality Breast, Breast Imaging RST LOS, Breast Imaging ARZ LOS, [place] Bilateral Mammography Imaging FLA LOS Specimen (Source) Anatomical Collection Method Collection Time Re ceived Time Location / / Volume Laterality 02/26/2020 9:02 AM BUSINESS SYSTEM MANAGER Impressions 02/26/2020 9:03 AM BUSINESS SYSTEM MANAGER Negative. RECOMMENDATION: ??Annual Screening Mammo gram ASSESSMENT: ??BI-RADS: 1: Negative. Narrative 02/26/2020 9:03 AM BUSINESS SYSTEM MANAGER EXAM: ??BI BREAST SCREENING BILATERAL WITH TOMOSYNTHESIS Current study was evaluated with a Pro Stream +u ter Aided Detection (CAD) system. INDICATION: ??Screening [...] Negative. Oliva Young P.A.-C. IMG BI PROCEDURES documented in this encounter Visit Diagnoses Diagnosis Screening Mammogram Breast Cancer documented in this encounter Care Teams Telecommunications Network Engineer Relationship Specialty Start Date End Date Oliva Young P.A.-C. PCP - General Family Medicine 12/04/24 [place] [phone] documented as of this encounter
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
--- NOTE | 2021-12-21 03:17 | W.PC.EDHO ---
Primary Language: Preferred Language: Orientation Status: [x] Alert & Oriented [] Slight Confusion [] Known Dx Dementia Transfers By: [x] Assist of 1 [] Assist of 2 [] Lift Active Medications Discontinued Medications Generic Name Dose Route Start Last Admin Trade Name Gris PRN Reason Stop Dose Admin Sodium Chloride 1,000 mls @ 1,000 mls/hr 12/21/21 01:00 12/21/21 02:36 0.9 % Sodium Chloride 1000 Ml IV 12/21/21 01:59 Infused .Q1H LENNIE Infusion Morphine Sulfate 4 mg 12/21/21 00:54 12/21/21 01:08 Morphine 4 Mg/Ml Inj IVP 12/21/21 00:55 4 mg ONCE ONE Administration Ondansetron HCl 4 mg 12/21/21 00:54 12/21/21 01:07 Ondansetron 2 Mg/Ml Inj IVP 12/21/21 00:55 4 mg ONCE ONE Administration Description of Symptoms ED Triage Present Problem abd issue started around 1700, felt like IBS. Description around 2330, severe pain developed with nausea and vomiting. pain described as sharp spasming, rated 8/10. Female History Patient No Patient No Pain Pain Description [Medial Spasm,Stabbing Abdomen] Pain Intensity [Medial Abdomen 6 ] Pain Intensity 1 Pain Intensity 8 Pain Intensity 1 Pain Scale Used [Medial Numeric (1 - 10) Abdomen] Pain Scale Used Numeric (1 - 10) Pain Scale Used Numeric (1 - 10) Pain Scale Used Numeric (1 - 10) Oxygen Administration Pulse Oximetry 98 Pulse Oximetry 93 Pulse Oximetry 91 Pulse Oximetry 96 Pulse Oximetry 95 Pulse Oximetry 97 Pulse Oximetry 93 Pulse Oximetry 98 Oxygen Delivery Method Room Air
[2021-12-21 03:25] LABS: SARS PCR* Negative SARS-CoV-2 (Negative)
--- NOTE | 2021-12-21 04:00 | P.IMCN_ITS ---
Date of Consult Consult date: 12/21/21 Primary Care Provider: Isreal Ibarra MD Consult Narrative Narrative: [facility] ADMISSION SUPPORT NOTE eHospitalist was contacted by Dr. Murray with request of admission support. Chief complaint: Abdominal Pain HPI: The patient presents with abdominal pain and vomiting. She reports that around 5 PM she started having abdominal pain that was initially mild uncomfortable but tolerable. She took some ibuprofen about an hour later however the pain got extremely worse. She describes the pain as constant, spasms, severe in intensity. She reports that when she got up to leave the home to come to the emergency department she then developed nausea and had an episode of vomiting. Her nausea and pain have now improved with pain being 2- 3/10 intensity. Review of systems other mention above is negative Review of Systems Status of ROS: Reports: 10 or more systems reviewed and unremarkable except as noted in History and below [facility] Social History Smoking Status: Unknown if ever smoked Non-prescribed substance use: denies use service: No Meds Home Medications and Allergies Allergies Allergy/AdvReac Type Severity Reaction Status Date / Time No Known Drug Allergies Allergy Verified 12/21/21 01:31 Exam Narrative: Exam Narrative: Exam (performed via interactive video with assistance of bedside nurse): General: Alert, cooperative, no acute distress HEENT: Oral mucosa pink and moist without erythema Lungs: Clear to auscultation bilaterally without crackle or wheeze CV: Regular rate and rhythm without loud murmur rub or gallop Abd: Bowel sounds hypoactive, does not exhibit signs of pain with palpation done by bedside nurse Ext: No pitting edema noted Skin: No rashes, bruises or lesions appreciated on gross visualization of exposed skin Neuro: Alert, oriented x 3. CN III -VII, XI, XII grossly intact, moves all extremities without any significant focal deficit appreciated Const: Vital Signs, click to edit/add: Vital Signs - 24 hr 12/20/21 23:54 12/21/21 00:27 12/21/21 00:30 Temperature 96.3 F L Pulse Rate 75 75 Pulse Rate [Left P ulse Oximeter] 69 Respiratory Rate 16 Blood Pressure Blood Pressure [Ri ght Upper Arm] 126/82 Pulse Oximetry 98 93 97 Oxygen Delivery Me thod Room Air 12/21/21 01:00 12/21/21 01:30 12/21/21 02:00 Temperature Pulse Rate 73 74 71 Pulse Rate [Left P ulse Oximeter] Respiratory Rate Blood Pressure Blood Pressure [Ri ght Upper Arm] Pulse Oximetry 95 96 91 Oxygen Delivery Me thod 12/21/21 02:01 12/21/21 02:30 12/21/21 03:00 Temperature Pulse Rate 74 71 64 Pulse Rate [Left P ulse Oximeter] Respiratory Rate Blood Pressure 106/54 L Blood Pressure [Ri ght Upper Arm] Pulse Oximetry 93 98 93 Oxygen Delivery Me thod 12/21/21 03:01 12/21/21 03:30 Temperature Pulse Rate 64 63 Pulse Rate [Left P ulse Oximeter] Respiratory Rate Blood Pressure 116/73 Blood Pressure [Ri ght Upper Arm] Pulse Oximetry 93 94 Oxygen Delivery Me thod Labs Labs: Short CBC 12/21/21 Range/Units 00:15 WBC 8.90 (4.50-11.00) K/uL Hgb 14.3 (12.0-16.0) gm/dL Hct 41.2 (33.0-51.0) % Plt Count 276 (140-440) K/uL BMP 12/21/21 00:15 Sodium 136 Potassium 3.9 Chloride 102 Carbon Dioxide 27 BUN 14 Creatinine 0.8 Glucose 110 Calcium 10.2 Liver Function 12/21/21 Range/Units 00:15 Total Bilirubin 0.7 (0.1-1.5) mg/dL Direct Bilirubin 0.1 (0.0-0.5) mg/dL AST 39 H (12-35) U/L ALT 30 (4-35) U/L Alkaline Phosphatase 72 (40-150) U/L Albumin 4.7 (3.3-5.0) g/dL Urine 12/21/21 Range/Units 01:00 Urine Color Yellow (Yellow) Urine Appearance Cloudy A (Clear) Urine pH 8.0 (5.0-8.5) Ur Specific [place] 1.015 (1.000-1.030) Urine Protein Negative (Negative) Urine Glucose (UA) Negative (Negative) Assessment and Plan Assessment and plan (1) SBO (small bowel obstruction): Status: Acute Plan Recent lab/CT scan abdomen and pelvis: Reviewed see EMR for details Assessment and Plan: 1. Small bowel obstruction-concern given stricture seen on CT scan of abdomen and pelvis. She has had previous abdominal surgery. Continue pain medications and antinausea medications for now. Rounding provider to consult general surgery formerly in the morning. 2. Depression-stable on Effexor 3. DVT prophylaxis-Lovenox 4. CODE STATUS full code discussed with patient Chart review was performed as well as evaluation of the patient via video. Thank you for involving ehospitalist. Please contact [phone] if further assistance is needed.
[2021-12-21] MEDS: 0.9 % SODIUM CHLORIDE 1000 ml 1,000 ML 125 ML IV ×3 (04:45→20:28)
--- NOTE | 2021-12-21 05:05 | PC.NURSE ---
Admission Note: Pt arrived to floor @ 0400 via wheelchair accompanied by Klaus LUND, report taken from Klaus. Pt A&O x3, up ad pepper, PIV patent and asymptomatic in L AC, NS started @ 125mL/hr. Pt rated pain 2/10 after receiving Morphine 4mg x2 in ED, describes pain as spasms. Abdomen soft but tender in RLQ to palpation, BS hypoactive. Pt denies nausea after receiving Ondansetron in ED. Pt resting in bed waiting for general surgery consult. Pt is a daily wine drinker, alcohol screening resulted in a score of 4, to be addressed by .
--- NOTE | 2021-12-21 06:43 | P.IMHP_ITS ---
Hospitalist- H&P: HPI History of Present Illness Date Seen: 12/21/21 Chief complaint: abdominal pain Narrative: Solange Cat is a 41 year old female who presented to the emergency room last evening for right-sided abdominal pain. Pain began suddenly at 5pm last night. It was associated with nausea and vomiting (x1). No other associated symptoms. Doesn't think she's had flatus since pain began. No recent travel, no new medications, no new foods. ER Course and Findings: - partial small-bowel obstruction in right anterior upper pelvis (stricture queried by radiologist) Admitted overnight by [facility] telehospitalist, pain and nausea have been controlled by morphine and Zofran. Patient has no concerns for me this morning. History of mild anxiety, controlled on venlafaxine. History of x1. Dr. Ibarra ([facility]) is PCP. 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 Nonsmoker, drinks wine most nights of the week, no history of ETOH withdrawal. Review of Systems Status of ROS: Reports: 10 or more systems reviewed and unremarkable except as noted in History and below Narrative: Specifically denies chest pain, dyspnea, orthopnea. No skin changes or pruritus. [facility] Medical History (Updated 12/21/21 @ 07:08 by Eduarda Rico MD) Anxiety Surgical History (Updated 12/21/21 @ 07:08 by Eduarda Rico MD) History of Social History Highest level of school completed/degree received: Bachelor's degree Smoking Status: Never smoker How often do you have a drink containing alcohol: 4 or more times a week Alcohol type: wine Alcohol type details: 1 glass How many standard drinks containing alcohol do you have on a typical day: 1 or 2 How often do you have six or more drinks on one occasion: Never AUDIT-C Alcohol total score: 4 Non-prescribed substance use: denies use Caffeine: Yes service: No Meds Home Medications and Allergies Home Medications Medication Instructions Recorded Confirmed Type venlafaxine 37.5 mg 37.5 mg PO DAILY 12/21/21 12/21/21 History capsule,extended release 24 hr venlafaxine 75 mg capsule,extended 75 mg PO DAILY 12/21/21 12/21/21 History release 24 hr Allergies Allergy/AdvReac Type Severity Reaction Status Date / Time No Known Drug Allergies Allergy Verified 12/21/21 01:31 Exam Narrative: Exam Narrative: GEN: Alert HEENT: Normal external ears, EOMIs bilaterally, no scleral icterus CV: RRR, soft systolic murmur without concerning features or radiation R: LCTA bilaterally without concerning wheezing, rales, or rhonchi Ab: Soft, mild tenderness to palpation without rebound or guarding Ext: wwp, no concerning edema Skin: No concerning skin lesions or rashes on exposed skin Neuro: Nonfocal Psych: Appropriate Const: Vital Signs, click to edit/add: Vital Signs - 24 hr 12/20/21 23:54 12/21/21 00:27 12/21/21 00:30 Temperature 96.3 F L Pulse Rate 75 75 Pulse Rate [Left P ulse Oximeter] 69 Respiratory Rate 16 Blood Pressure Blood Pressure [Le ft Arm] Blood Pressure [Ri ght Upper Arm] 126/82 Pulse Oximetry 98 93 97 Oxygen Delivery Me thod Room Air 12/21/21 01:00 12/21/21 01:30 12/21/21 02:00 Temperature Pulse Rate 73 74 71 Pulse Rate [Left P ulse Oximeter] Respiratory Rate Blood Pressure Blood Pressure [Le ft Arm] Blood Pressure [Ri ght Upper Arm] Pulse Oximetry 95 96 91 Oxygen Delivery Me thod 12/21/21 02:01 12/21/21 02:30 12/21/21 03:00 Temperature Pulse Rate 74 71 64 Pulse Rate [Left P ulse Oximeter] Respiratory Rate Blood Pressure 106/54 L Blood Pressure [Le ft Arm] Blood Pressure [Ri ght Upper Arm] Pulse Oximetry 93 98 93 Oxygen Delivery Me thod 12/21/21 03:01 12/21/21 03:30 12/21/21 04:13 Temperature 97.7 F Pulse Rate 64 63 Pulse Rate [Left P ulse Oximeter] 71 Respiratory Rate 16 Blood Pressure 116/73 Blood Pressure [Le ft Arm] 116/51 L Blood Pressure [Ri ght Upper Arm] Pulse Oximetry 93 94 96 Oxygen Delivery Me thod Room Air 12/21/21 04:34 12/21/21 04:57 Temperature 97.7 F Pulse Rate Pulse Rate [Left P ulse Oximeter] 71 Respiratory Rate 16 16 Blood Pressure Blood Pressure [Le ft Arm] 116/51 L Blood Pressure [Ri ght Upper Arm] Pulse Oximetry 96 96 Oxygen Delivery Me thod Room Air Room Air Hospitalist - H&P: Result Labs Labs: Short CBC 12/21/21 Range/Units 00:15 WBC 8.90 (4.50-11.00) K/uL Hgb 14.3 (12.0-16.0) gm/dL Hct 41.2 (33.0-51.0) % Plt Count 276 (140-440) K/uL BMP 12/21/21 00:15 Sodium 136 Potassium 3.9 Chloride 102 Carbon Dioxide 27 BUN 14 Creatinine 0.8 Glucose 110 Calcium 10.2 Liver Function 12/21/21 Range/Units 00:15 Total Bilirubin 0.7 (0.1-1.5) mg/dL Direct Bilirubin 0.1 (0.0-0.5) mg/dL AST 39 H (12-35) U/L ALT 30 (4-35) U/L Alkaline Phosphatase 72 (40-150) U/L Albumin 4.7 (3.3-5.0) g/dL Urine 12/21/21 Range/Units 01:00 Urine Color Yellow (Yellow) Urine Appearance Cloudy A (Clear) Urine pH 8.0 (5.0-8.5) Ur Specific [place] 1.015 (1.000-1.030) Urine Protein Negative (Negative) Urine Glucose (UA) Negative (Negative) Assessment and Plan Assessment and plan (1) SBO (small bowel obstruction): Status: Acute Assessment and Plan: - Dr. Cobos of general surgery consulted - NPO, IV pain medications as needed, place NG if symptoms worsen (2) Elevated AST (SGOT): Status: Acute Assessment and Plan: - mild elevation, possibly secondary to alcohol use, continue to follow Plan - per above - Lovenox and ambulation for prophylaxis - full code
--- NOTE | 2021-12-21 13:04 | P.GSCN_ITS ---
History of Present Illness Consult details Date Seen: 12/21/21 Consult date: 12/21/21 Narrative: The patient is a 41-year-old female admitted to the hospital overnight with severe abdominal pain. She states that around 5:00 p.m. she had abdominal pain in the periumbilical region which began abruptly. It worsened by 11:00 p.m. and with this she had nausea and vomiting x1. She came into the emergency department and had workup which showed a possible partial bowel obstruction. She was admitted to the hospital. She states that she had some nausea with transfer to the inpatient unit, however has since felt okay. She got pain medication at 3:30 a.m. this morning but has otherwise felt better. She had a bowel movement yesterday. She has not had pain like this before. She states that she has had issues with constipation in the past and was diagnosed with irritable bowel syndrome because of this. She has never had a colonoscopy. She states that when she had this diagnosis, which was in her 20s, that she had imaging done which showed that she had a ?tortuous colon. ? She was told to take MiraLax which she takes for constipation. She does not take a fiber supplement. She has never had a colonoscopy. Review of Systems Status of ROS: Reports: 10 or more systems reviewed and unremarkable except as noted in History and below [facility] Medical History (Updated 12/21/21 @ 13:08 by Leanna Cobos MD) Anxiety Surgical History (Updated 12/21/21 @ 13:07 by Leanna Cobos MD) History of S/P abdominoplasty S/P breast augmentation S/P right knee arthroscopy Social History Highest level of school completed/degree received: Bachelor's degree Smoking Status: Never smoker How often do you have a drink containing alcohol: 4 or more times a week Alcohol type: wine Alcohol type details: 1 glass How many standard drinks containing alcohol do you have on a typical day: 1 or 2 How often do you have six or more drinks on one occasion: Never AUDIT-C Alcohol total score: 4 Non-prescribed substance use: denies use Caffeine: Yes service: No Meds Home Medications and Allergies Home Medications Medication Instructions Recorded Confirmed Type venlafaxine 37.5 mg 37.5 mg PO DAILY 12/21/21 12/21/21 History capsule,extended release 24 hr venlafaxine 75 mg capsule,extended 75 mg PO DAILY 12/21/21 12/21/21 History release 24 hr Allergies Allergy/AdvReac Type Severity Reaction Status Date / Time No Known Drug Allergies Allergy Verified 12/21/21 01:31 Exam Narrative: Exam Narrative: General appearance: Alert, cooperative, and in no distress Eyes: PERRLA, eye lids clear, and sclera white HENT Head: Normocephalic Pulmonary: Breathing nonlabored on room air Cardiovascular Heart: Regular rate Extremities: warm and well perfuse Gastrointestinal Abdominal: Soft. Minimally tender in the right abdomen. No guarding or rebound. Musculoskeletal: Extremities: Upper: Both upper extremities have normal joint range of motion and intact strength. Lower: Both lower extremities have normal joint range of motion and intact strength. Skin: Normal skin color, texture, and turgor. No rashes or lesions. Neurologic: No focal deficits Psychiatric: Alert, oriented, cooperative, normal affect. Const: Vital Signs, click to edit/add: Vital Signs - 24 hr 12/20/21 23:54 12/21/21 00:27 12/21/21 00:30 Temperature 96.3 F L Pulse Rate 75 75 Pulse Rate [Left P ulse Oximeter] 69 Respiratory Rate 16 Blood Pressure Blood Pressure [Le ft Arm] Blood Pressure [Ri ght Upper Arm] 126/82 Pulse Oximetry 98 93 97 Oxygen Delivery Me od Room Air 12/21/21 01:00 12/21/21 01:30 12/21/21 02:00 Temperature Pulse Rate 73 74 71 Pulse Rate [Left P ulse Oximeter] Respiratory Rate Blood Pressure Blood Pressure [Le ft Arm] Blood Pressure [Ri ght Upper Arm] Pulse Oximetry 95 96 91 Oxygen Delivery Me thod 12/21/21 02:01 12/21/21 02:30 12/21/21 03:00 Temperature Pulse Rate 74 71 64 Pulse Rate [Left P ulse Oximeter] Respiratory Rate Blood Pressure 106/54 L Blood Pressure [Le ft Arm] Blood Pressure [Ri ght Upper Arm] Pulse Oximetry 93 98 93 Oxygen Delivery Me thod 12/21/21 03:01 12/21/21 03:30 12/21/21 04:13 Temperature 97.7 F Pulse Rate 64 63 Pulse Rate [Left P ulse Oximeter] 71 Respiratory Rate 16 Blood Pressure 116/73 Blood Pressure [Le ft Arm] 116/51 L Blood Pressure [Ri ght Upper Arm] Pulse Oximetry 93 94 96 Oxygen Delivery Me thod Room Air 12/21/21 04:34 12/21/21 04:57 12/21/21 08:00 Temperature 97.7 F 97.9 F Pulse Rate Pulse Rate [Left P ulse Oximeter] 71 70 Respiratory Rate 16 16 16 Blood Pressure Blood Pressure [Le ft Arm] 116/51 L 106/63 Blood Pressure [Ri ght Upper Arm] Pulse Oximetry 96 96 96 Oxygen Delivery Me thod Room Air Room Air Room Air 12/21/21 11:00 Temperature 98 F Pulse Rate Pulse Rate [Left P ulse Oximeter] 66 Respiratory Rate 16 Blood Pressure Blood Pressure [Le ft Arm] 102/69 Blood Pressure [Ri ght Upper Arm] Pulse Oximetry 96 Oxygen Delivery Me thod Room Air Results Labs Labs: Abnormal lab results 12/21/21 12/21/21 12/21/21 Range/Units 00:15 00:15 01:00 Neut % (Auto) 73.7 H (42.0-72.0) % Lymph % (Auto) 15.7 L (20-44) % AST 39 H (12-35) U/L C-Reactive Protein < 0.5 L (0.5-1.0) mg/dL Urine Appearance Cloudy A (Clear) Urine Ketones 1+ A (Negative) Amorphous Sediment Many A (None) Urine Bacteria Few A (None) Ethyl Alcohol < 0.01 L (0.01-0.03) % Diabetes panel 12/21/21 Range/Units 00:15 Sodium 136 (135-149) mmol/L Potassium 3.9 (3.6-5.1) mmol/L Chloride 102 (96-114) mmol/L Carbon Dioxide 27 (20-32) mmol/L BUN 14 (5-24) mg/dL Creatinine 0.8 (0.5-1.5) mg/dL Glucose 110 (60-115) mg/dL Calcium 10.2 (8.4-10.6) mg/dL AST 39 H (12-35) U/L ALT 30 (4-35) U/L Alkaline Phosphatase 72 (40-150) U/L Total Protein 7.3 (6.0-8.3) g/dL Albumin 4.7 (3.3-5.0) g/dL Calcium panel 12/21/21 Range/Units 00:15 Calcium 10.2 (8.4-10.6) mg/dL Albumin 4.7 (3.3-5.0) g/dL Pituitary panel 12/21/21 Range/Units 00:15 Sodium 136 (135-149) mmol/L Potassium 3.9 (3.6-5.1) mmol/L Chloride 102 (96-114) mmol/L Carbon Dioxide 27 (20-32) mmol/L BUN 14 (5-24) mg/dL Creatinine 0.8 (0.5-1.5) mg/dL Glucose 110 (60-115) mg/dL Calcium 10.2 (8.4-10.6) mg/dL Adrenal panel 12/21/21 Range/Units 00:15 Sodium 136 (135-149) mmol/L Potassium 3.9 (3.6-5.1) mmol/L Chloride 102 (96-114) mmol/L Carbon Dioxide 27 (20-32) mmol/L BUN 14 (5-24) mg/dL Creatinine 0.8 (0.5-1.5) mg/dL Glucose 110 (60-115) mg/dL Calcium 10.2 (8.4-10.6) mg/dL Total Bilirubin 0.7 (0.1-1.5) mg/dL AST 39 H (12-35) U/L ALT 30 (4-35) U/L Alkaline Phosphatase 72 (40-150) U/L Total Protein 7.3 (6.0-8.3) g/dL Albumin 4.7 (3.3-5.0) g/dL All other labs normal. Imaging Abdomen CT scan report/results: report reviewed and image reviewed (Discussed with radiologist) Additional studies: IMPRESSION: Partial small bowel obstruction produced by what appears to be a stricture in the right anterior upper pelvis. Mild amount of free fluid in the abdomen and pelvis probably ascites related to struck jacobs. No sign of free air or extraluminal air to suggest perforation. CT of the abdomen shows no additional significant abnormality. CT of the pelvis shows a right larger than left ovarian cysts and a right adnexal cyst. Please note that all CT scans at this facility use dose modulation, iterative reconstruction, and/or weight-based dosing when appropriate to reduce radiation dose to as low as reasonably achievable. Dictated by Erick Peace MD @ 12/21/2021 2:13:59 AM Assessment and Plan Assessment and plan (1) SBO (small bowel obstruction): Status: Acute (2) Ileitis: Status: Acute Plan The patient is a 41-year-old female with possible small-bowel obstruction versus ileitis. I explained to the patient and her that I discussed her case with the radiologist. The terminal ileum appears to be normal, however there is thickening of the mucosa of the ileum itself with surrounding mesenteric inflammation, adenopathy and fluid. This can be seen with inflammatory bowel disease, however she does not have a history of this. It does not appear as though she has a closed loop obstruction or that she has mesenteric ischemia. Since her symptoms have improved today, I think watchful waiting is best. Even though it seems as though inflammatory bowel disease could be a possibility, I am not confident enough in this diagnosis to start her on steroids. I explained that if her pain worsened, she developed fever tachycardia or her labs became markedly worse then we may need to consider exploration. For now he will continue NPO status and follow her along clinically. She does better we can advance her diet tomorrow. Recheck labs in the morning.
--- NOTE | 2021-12-21 14:28 | PC.NURSE ---
Pt eval by Dr. Rico. Remains NPO. Pt VS are wnl parameters. Declined offer of pain meds or nausea medication on day shift. Maintenance IVF NS @ 125 cc/hr continues. Pt rating her RLQ pain 3 out of 10 which she states is manageable. Dr. Cobos in to see pt and her Juan who is a physician for [facility] in [place]. UAL in room and walking in the hallway. Continue POC and notify physician for increased pain, nausea or fever.
[2021-12-21] MEDS: ACETAMINOPHEN 325 MG TABLET 650 MG PO (20:28)
[2021-12-21] MEDS: ENOXAPARIN 40 MG/0.4 ML INJ SUBCUT (20:30)
[2021-12-22 03:50] VITALS: BP 108/63; PULSE 77; RESP 14; TEMP 36.5; O2SAT 94
[2021-12-22] MEDS: 0.9 % SODIUM CHLORIDE 1000 ml 1,000 ML 125 ML IV (03:53)
--- NOTE | 2021-12-22 05:18 | PC.NURSE ---
Shift Note -: Pt pleasant and cooperative, VSS, afebrile, denies pain in abdomen. LS clear, BS active, passing flatus. PIV patent and asymptomatic with maintenance fluids running. Up independently in room. See eMAR for medication administration.
[2021-12-22 07:08] LABS: Basophils Absolute Auto 0.03 K/uL (0.00-0.30); Basophils Percent Auto 0.6 % (0.0-3.0); Eosinophils Absolute Auto 0.27 K/uL (0.00-0.50); Eosinophils Percent Auto 5.3 % (0.0-7.0); Hematocrit 36.5 % (33.0-51.0); Hemoglobin* 12.3 gm/dL (12.0-16.0); Immature Granulocytes Abs Auto 0.01 K/uL (0.00-0.30); Lymphocytes Percent Auto 31.6 % (20-44); Mean Corpuscular HGB Conc 34 gm/dL (32-36); Mean Corpuscular Hemoglobin 33 pg (26-34); Mean Corpuscular Volume 99 fL (80-100); Monocytes Percent Auto 9.3 % (0.0-11.0); Neutrophils Absolute Auto 2.68 K/uL (1.7-7.0); Platelet Count* 220 K/uL (140-440); RDW Coefficient of Variation % 11.7 % (11.5-15.5); Red Blood Count 3.68 m/uL (4.00-5.20); Slide Review Reflex No; White Blood Count* 5.06 K/uL (4.50-11.00)
[2021-12-22 07:28] LABS: Albumin* 3.6 g/dL (3.3-5.0); Chloride* 109 mmol/L (96-114); Sodium* 136 mmol/L (135-149)
[2021-12-22 07:29] LABS: Potassium* 3.9 mmol/L (3.6-5.1)
[2021-12-22 07:30] LABS: Creatinine* 0.7 mg/dL (0.5-1.5); Est. Creatinine Clearance* 109.41; Estimated Glomerular Filt Rate 111 ml/min
[2021-12-22 07:31] LABS: Alanine Aminotransferase* 24 U/L (4-35); Alkaline Phosphatase* 49 U/L (40-150); Aspartate Amino Transferase* 30 U/L (12-35); Bilirubin Total* 0.5 mg/dL (0.1-1.5); Blood Urea Nitrogen* 10 mg/dL (5-24); Carbon Dioxide* 23 mmol/L (20-32); Total Protein* 5.8 g/dL (6.0-8.3)
[2021-12-22 07:32] LABS: Calcium* 8.1 mg/dL (8.4-10.6); Glucose* 85 mg/dL (60-115)
[2021-12-22 07:54] LABS: Erythrocyte SedimentationRate* 5 mm/hr (2-20)
[2021-12-22 08:32] VITALS: BP 108/65; PULSE 76; RESP 16; TEMP 36.5; O2SAT 96
[2021-12-22] MEDS: ACETAMINOPHEN 325 MG TABLET 650 MG PO (08:38)
--- NOTE | 2021-12-22 09:02 | PM.GSPN ---
Subjective Subjective Date Seen: 12/22/21 Interval history: Patient is feeling better today. Denies pain. She has been having clear liquids this morning without issue. She states that she has had no nausea and is passing flatus. She has not had a bowel movement. Exam Narrative: Exam Narrative: General: No acute distress CV: Regular rate Respiratory: Breathing nonlabored on room air Abdomen: Soft. Minimally tender to deep palpation in the right lower quadrant. Const: Vital Signs, click to edit/add: Vital Signs - 24 hr 12/21/21 11:00 12/21/21 16:07 12/21/21 20:37 Temperature 98 F 98.0 F 97.5 F L Pulse Rate [Left P ulse Oximeter] 66 64 65 Respiratory Rate 16 16 14 Blood Pressure [Le ft Arm] 102/69 108/71 111/69 Pulse Oximetry 96 98 95 Oxygen Delivery Me thod Room Air Room Air Room Air 12/21/21 23:00 12/21/21 23:00 12/22/21 03:50 Temperature 97.7 F Pulse Rate [Left P ulse Oximeter] 65 77 Respiratory Rate 14 14 14 Blood Pressure [Le ft Arm] 108/63 Pulse Oximetry 94 Oxygen Delivery Me thod Room Air 12/22/21 08:32 Temperature 97.7 F Pulse Rate [Left P ulse Oximeter] 76 Respiratory Rate 16 Blood Pressure [Le ft Arm] 108/65 Pulse Oximetry 96 Oxygen Delivery Me thod Room Air Labs/Imaging Labs Labs: White blood cell count remains normal without left shift. CRP remains normal. Liver tests are now normal as well. Progress Note: A&P Assessment and plan (1) Ileitis: Status: Acute Plan The patient is a 41-year-old female with likely ileitis versus small bowel obstruction. Clinically she has improved. I discussed with her that today we will plan on advancing her diet. She does well she could potentially discharge. The cause her ileitis is unclear. We discussed follow-up CT scan when she is feeling well to ensure resolution and re-evaluate the area. I also would recommend a colonoscopy with terminal ileoscopy to evaluate for inflammatory bowel disease. We will see how she does today with advancement of her diet.
--- NOTE | 2021-12-22 13:08 | P.DS_ITS ---
DS: Providers Provider Date Seen: 12/22/21 Date of admission: 12/21/21 09:22 Primary care physician: Isreal Ibarra MD Admitting Clinician: Eduarda Rico MD Consults: Dr. Cobos of general surgery Attending Physician on discharge: Eduarda Rico MD Date of Discharge: 12/22/21 DS: Diagnosis Discharge Diagnosis (1) Ileitis: Status: Acute DS: Summary Hospital Course Hospital Course: 41-year-old female admitted to the hospital for abdominal pain, found to have ileitis and a small bowel obstruction on admission imaging. Patient was kept NPO on hospital day 1 and bowel function returned. She was seen by Dr. Cobos of general surgery in consultation; did not require an NG tube or any surgical intervention. Source of ileitis unclear, possibly Crohn's disease vs idiopathic. On hospital day 2, patient was able to advance diet and was passing flatus. She felt comfortable discharging home with close follow-up. She will see General surgery in 1-[address] scan at that time. Colonoscopy recommended in 4-6 weeks. Patient agreeable with discharge plan. Status at Discharge Overall status at discharge: patient is back to baseline Time Spent with Patient Time attestation: Total time spent providing and/or coordinating discharge services: Time spent: Greater than 30 minutes Specific discharge activities: Consulting with Surgical team, care coordination. Exam Narrative: Exam Narrative: GEN: Alert HEENT: Normal external ears, EOMIs bilaterally, no scleral icterus CV: RRR, No concerning murmurs, rubs, or gallops R: LCTA bilaterally without concerning wheezing, rales, or rhonchi Ab: Positive bowel sounds throughout Ext: wwp, no concerning edema Skin: No concerning skin lesions or rashes on exposed skin Neuro: Nonfocal Psych: Appropriate Const: Vital Signs, click to edit/add: Vital Signs - 24 hr 12/21/21 16:07 12/21/21 20:37 12/21/21 23:00 Temperature 98.0 F 97.5 F L Pulse Rate [Left P ulse Oximeter] 64 65 65 Respiratory Rate 16 14 14 Blood Pressure [Le ft Arm] 108/71 111/69 Pulse Oximetry 98 95 Oxygen Delivery Me thod Room Air Room Air 12/21/21 23:00 12/22/21 03:50 12/22/21 08:32 Temperature 97.7 F 97.7 F Pulse Rate [Left P ulse Oximeter] 77 76 Respiratory Rate 14 14 16 Blood Pressure [Le ft Arm] 108/63 108/65 Pulse Oximetry 94 96 Oxygen Delivery Me thod Room Air Room Air DS: Data Data Completed and Pending Labs on day of discharge: Labs from last 24 hours 12/22/21 12/22/21 12/22/21 06:15 06:15 06:15 WBC 5.06 RBC 3.68 L Hgb 12.3 Hct 36.5 MCV 99 MCH 33 MCHC 34 RDW Coeff of Nicole 11.7 Plt Count 220 Neut % (Auto) 53.0 Lymph % (Auto) 31.6 [place] % (Auto) 9.3 Eos % (Auto) 5.3 Baso % (Auto) 0.6 Neut # (Auto) 2.68 Lymph # (Auto) 1.60 [place] # (Auto) 0.50 Eos # (Auto) 0.27 Baso # (Auto) 0.03 Abs Immat Gran (auto) 0.01 ESR 5 Sodium 136 Potassium 3.9 Chloride 109 Carbon Dioxide 23 BUN 10 Creatinine 0.7 Estimated Creat Clear 109.41 Estimated GFR 111 Glucose 85 Calcium 8.1 L Total Bilirubin 0.5 AST 30 ALT 24 Alkaline Phosphatase 49 C-Reactive Protein 1.0 Total Protein 5.8 L Albumin 3.6 Preliminary micro results at discharge 12/21/21 01:00 Urine Culture - Preliminary Urine,Clean Catch Discharge Plan Discharge Disposition: Home, Self-Care Date of Admission: 12/21/21 09:22 Attending Provider on Discharge: Eduarda Rico Consulting Providers: Leanna Cobos Primary Care Provider: Isreal Ibarra Condition: Improved Anticipated Discharge Date/Time: 12/22/21 15:00 Discharge Medications: Continued venlafaxine 37.5 mg capsule,extended release 24hr 37.5 mg PO DAILY venlafaxine 75 mg capsule,extended release 24hr 75 mg PO DAILY Discharge Orders: Discharge Order (Routine); Ordered 12/22/21 Ordered By: Eduarda Rico Patient Education: Bowel Obstruction (DC) Additional Instructions: [place] diet for the next 2-[address] Cobos in 1-2 weeks, discuss repeat CT at that time. Colonoscopy in 4-6 weeks. Activity Level: Activity as Tolerated Discharge Diet: Other Diet Detail: Advance Diet as Tolerated Follow Up Appointments: Leanna Cobos MD [Staff Physician] - 01/04/22 8:45 am Isreal Ibarra MD [Primary Care Provider] - (after f/u and repeat CT scan with Dr. Cobos) Forms: [employer] Info Instructions
== END 2021-12-22 13:16 | disposition home or self-care (01) | DRG 389 ==
LOC: ED 12-21 03:07 → MEDSURG 12-21 03:47
PROVIDERS: Admitting Provider Family Medicine; Emergency Provider Emergency Medicine; PCP Family Medicine; Visit Provider Family Medicine
DX: K56.690 Other partial intestinal obstruction (principal); K50.912 Crohn's disease, unspecified, with intestinal obstruction; K52.89 Other specified noninfective gastroenteritis and colitis; F32.A Depression, unspecified; F41.9 Anxiety disorder, unspecified; R74.01 Elevation of levels of liver transaminase levels; N83.292 Other ovarian cyst, left side; N83.291 Other ovarian cyst, right side
CPT/HCPCS: 36415; 74177; 80048; 80053; 80076; 81001; 81025; 82077; 83605; 83690; 85025; 85651; 86140; 87086; 87635; 94761; 99251; 99284; 99285; A9270; G0378; J1650; J2270; J2405; J7030; Q9967